=== PATIENT | female | born 1965 | race Caucasian/White ===

== ENCOUNTER → 2018-03-22 09:39 | Outpatient (CLI) | payer OTHER, SELFPAY ==
[2018-03-22 12:16] LABS: Absolute Lymphocyte Count 2.28 X10^3/ul (0.83-4.51); Basophil# 0.03 X10^3/uL; Basophil% 0.4 % (0-1); Eosinophil# 0.35 X10^3/uL; Eosinophils% 4.3 % (0-5); Hematocrit 37.6 % (37-47); Hemoglobin 11.8 g/dl (12.0-15.0); Lymphocyte # 2.28 X10^3/ul (4.0); Lymphocyte % 27.9 % (19-41); Mean Corp Hgb Conc 31.4 g/gl (32-36); Mean Corpuscular Hgb 24.8 pg (27.0-32.0); Mean Platelet Vol. 9.9 fl (6.2-12.0); Monocyte# 0.45 X10^3/uL; Monocyte% 5.5 % (0-10); Neutrophil # 5.03 X10^3/uL (2.7-7.7); Neutrophil % 61.7 % (47-70); Platelet Count 375 K/mm3 (150-450); RBC Distribution Width CV 14.2 % (11.6-14.6); RBC Distribution Width SD 40.5 fl (35.1-43.9); Red Blood Count 4.76 M/mm3 (4.2-5.4); White Blood Count 8.2 K/mm3 (4.4-11.0)
[2018-03-22 12:20] LABS: POSITIVE COUNT NO; POSITIVE DIFFERENTIAL NO; POSITIVE MORPHOLOGY NO
[2018-03-22 12:42] LABS: Vitamin B12 > 2000 pg/mL (211-911); Vitamin D,25 Hydroxy 12.2 ng/mL (29.95-100.01)
[2018-03-22 12:58] LABS: ALB/GLOB Ratio 0.8 RATIO (0.9-2.4); AST(SGOT) 42 U/L (15-37); Alanine Aminotransfer ALT/SGPT 54 U/L (13-56); Albumin, Serum 3.3 g/dL (3.2-5.0); Alkaline Phosphatase 150 U/L (45-117); Anion Gap 11 (5-15); BUN 9 mg/dL (7-18); BUN/Creat Ratio 17.1 RATIO (10-20); Calcium,Total 8.9 mg/dL (8.5-10.1); Chloride 107 mmol/L (98-107); Cholesterol 111 mg/dL (200); Creatinine, Serum 0.52 mg/dL (0.55-1.02); EST Glomerular Filtration Rate 131 mL/min (>60); Est Glom Filt Rate - Afr Amer 158 mL/min (>60); Ferritin 27 ng/mL (8-252); Globulin 3.9 g/dL (2.2-4.2); Glucose 114 mg/dL (74-106); High Density Lipoprotein 35 mg/dL; Iron 56 ug/dL (50-170); Potassium 3.7 mmol/L (3.5-5.1); Protein, Total 7.2 g/dL (6.4-8.2); Sodium Level 144 mmol/L (136-145); Thyroid Stim Hormone (TSH) < 0.01 uIU/mL (0.358-3.74); Triglycerides 53 mg/dL; Very Low Density Lipoprotein 11 mg/dL (5-40)
[2018-03-22 13:48] LABS: Free T3 6.6 pg/mL (2.18-3.98); T4 Free Direct 1.93 ng/dL (0.76-1.46)
== END ==
PROVIDERS: Family Provider Family Medicine; PCP Family Medicine; Visit Provider Family Medicine
DX: D50.9 Iron deficiency anemia, unspecified (principal); E53.8 Deficiency of other specified B group vitamins; R53.83 Other fatigue; E05.90 Thyrotoxicosis, unspecified without thyrotoxic crisis or storm
CPT/HCPCS: 36415; 80053; 80061; 82306; 82607; 82728; 83540; 84439; 84443; 84445; 84481; 85025

== ENCOUNTER → 2018-03-26 15:23 | Outpatient (CLI) | payer OTHER, SELFPAY ==
--- NOTE | 2018-03-26 15:37 | US_ITS ---
STUDY: THYROID ULTRASOUND REASON FOR EXAM: Female, 52 years old. POSSIBLE HYPERTHYROIDISM, GRAVES DX TECHNIQUE: Ultrasound evaluation of the thyroid was performed with real-time and static thompson-scale imaging. COMPARISON: None. FINDINGS: RIGHT LOBE: The right lobe of the thyroid gland measures 4.5X1.8X1.2 cm. There is a heterogeneous echotexture. There are no demonstrated solid, cystic or complex lesions. LEFT LOBE: The left lobe of the thyroid gland measures 4X1.6X1.2 cm. There is a heterogeneous echotexture. There are no demonstrated solid, cystic or complex lesions. ISTHMUS: The isthmus measures 4 MM. There is a left sided lymph node that measures 19 x 17 x 5mm. US/Thyroid IMPRESSION: There is diffusely heterogeneous bilateral thyroid lobes. There is no visualized thyroid nodule. Left neck lymph node. Electronically Signed: Musa Thrasher MD at 20:08 EDT , Service support ,
== END ==
PROVIDERS: Family Provider Family Medicine; PCP Family Medicine; Visit Provider Family Medicine
DX: E05.00 Thyrotoxicosis with diffuse goiter without thyrotoxic crisis or storm (principal)
CPT/HCPCS: 76536

== ENCOUNTER → 2018-05-10 14:57 | Outpatient (CLI) | payer OTHER, SELFPAY ==
[2018-05-10 17:36] LABS: Absolute Lymphocyte Count 2.01 X10^3/ul (0.83-4.51); Absolute Neutrophil Count 6.1 X10^3/uL (2.0-7.7); Basophil# 0.04 X10^3/uL; Basophil% 0.4 % (0-1); Eosinophil# 0.36 X10^3/uL; Hematocrit 38.8 % (37-47); Hemoglobin 12.1 g/dl (12.0-15.0); Lymphocyte # 2.01 X10^3/ul (4.0); Lymphocyte % 22.6 % (19-41); Mean Corp Hgb Conc 31.2 g/gl (32-36); Mean Corpuscular Hgb 25.2 pg (27.0-32.0); Mean Corpuscular Volume 80.8 fL (81-99); Mean Platelet Vol. 10.1 fl (6.2-12.0); Monocyte# 0.32 X10^3/uL; Monocyte% 3.6 % (0-10); Neutrophil # 6.07 X10^3/uL (2.7-7.7); Neutrophil % 68.4 % (47-70); Platelet Count 384 K/mm3 (150-450); RBC Distribution Width CV 15.8 % (11.6-14.6); RBC Distribution Width SD 46.2 fl (35.1-43.9); White Blood Count 8.9 K/mm3 (4.4-11.0)
[2018-05-10 17:37] LABS: Differential Indicated SCAN CRITERIA MET; POSITIVE COUNT NO; POSITIVE DIFFERENTIAL NO; POSITIVE MORPHOLOGY YES
[2018-05-10 17:45] LABS: T4 Free Direct 0.49 ng/dL (0.76-1.46); Thyroid Stim Hormone (TSH) 0.24 uIU/mL (0.358-3.74)
== END ==
PROVIDERS: Family Provider Family Medicine; PCP Family Medicine; Visit Provider Family Medicine
DX: E05.00 Thyrotoxicosis with diffuse goiter without thyrotoxic crisis or storm (principal); D50.9 Iron deficiency anemia, unspecified
CPT/HCPCS: 36415; 84439; 84443; 85025

== ENCOUNTER → 2018-11-08 14:13 | Outpatient (CLI) | payer OTHER, SELFPAY ==
[2018-11-08 16:12] LABS: Absolute Lymphocyte Count 1.26 X10^3/ul (0.83-4.51); Absolute Neutrophil Count 5.8 X10^3/uL (2.0-7.7); Basophil# 0.03 X10^3/uL; Basophil% 0.4 % (0-1); Eosinophil# 0.16 X10^3/uL; Eosinophils% 2.1 % (0-5); Hematocrit 39.7 % (37-47); Hemoglobin 12.1 g/dl (12.0-15.0); Lymphocyte # 1.26 X10^3/ul (4.0); Lymphocyte % 16.4 % (19-41); Mean Corp Hgb Conc 30.5 g/gl (32-36); Mean Corpuscular Hgb 25.5 pg (27.0-32.0); Mean Corpuscular Volume 83.6 fL (81-99); Mean Platelet Vol. 10.2 fl (6.2-12.0); Monocyte# 0.44 X10^3/uL; Monocyte% 5.7 % (0-10); Neutrophil # 5.76 X10^3/uL (2.7-7.7); POSITIVE COUNT NO; POSITIVE DIFFERENTIAL NO; POSITIVE MORPHOLOGY NO; Platelet Count 394 K/mm3 (150-450); RBC Distribution Width CV 15.1 % (11.6-14.6); RBC Distribution Width SD 46.2 fl (35.1-43.9); Red Blood Count 4.75 M/mm3 (4.2-5.4); White Blood Count 7.7 K/mm3 (4.4-11.0)
[2018-11-08 16:25] LABS: T4 Free Direct 0.93 ng/dL (0.76-1.46); Thyroid Stim Hormone (TSH) 6.66 uIU/mL (0.358-3.74)
== END ==
PROVIDERS: Family Provider Family Medicine; PCP Family Medicine; Visit Provider Family Medicine
DX: E05.00 Thyrotoxicosis with diffuse goiter without thyrotoxic crisis or storm (principal); J45.909 Unspecified asthma, uncomplicated; G47.00 Insomnia, unspecified; Z51.81 Encounter for therapeutic drug level monitoring
CPT/HCPCS: 36415; 84439; 84443; 85025

== ENCOUNTER → 2019-06-10 15:37 | Outpatient (CLI) | payer OTHER, SELFPAY ==
[2019-06-10 17:58] LABS: T4 Free Direct 0.86 ng/dL (0.76-1.46); Thyroid Stim Hormone (TSH) 1.36 uIU/mL (0.358-3.74)
== END ==
PROVIDERS: Family Provider Family Medicine; PCP Family Medicine; Visit Provider Family Medicine
DX: E05.00 Thyrotoxicosis with diffuse goiter without thyrotoxic crisis or storm (principal); G47.00 Insomnia, unspecified; Z51.81 Encounter for therapeutic drug level monitoring
CPT/HCPCS: 36415; 84439; 84443

== ENCOUNTER → 2020-06-25 15:54 | Outpatient (CLI) | payer OTHER, SELFPAY ==
[2017-10-11 15:00] VITALS: BMI 24.7
[2020-06-25 17:42] LABS: Absolute Lymphocyte Count 1.63 X10^3/uL (0.83-4.51); Absolute Neutrophil Count 6.6 X10^3/uL (2.0-7.7); Basophil# 0.07 X10^3/uL; Basophil% 0.8 % (0-1); Eosinophil# 0.33 X10^3/uL; Eosinophils% 3.6 % (0-5); Hematocrit 34.2 % (37-47); Hemoglobin 10.1 g/dL (12.0-15.0); Lymphocyte # 1.63 X10^3/ul (4.0); Lymphocyte % 17.5 % (19-41); Mean Corp Hgb Conc 29.5 g/dL (32-36); Mean Corpuscular Hgb 23.3 pg (27.0-32.0); Mean Corpuscular Volume 78.8 fL (81-99); Monocyte# 0.62 X10^3/uL; Monocyte% 6.7 % (0-10); NRBC Flagged by Analyzer 0 % (0-5); Neutrophil # 6.55 X10^3/uL (2.7-7.7); Neutrophil % 70.4 % (47-70); Platelet Count 446 K/mm3 (150-450); RBC Distribution Width CV 15.9 % (11.6-14.6); RBC Distribution Width SD 45.1 fl (35.1-43.9); Red Blood Count 4.34 M/mm3 (4.2-5.4); White Blood Count 9.3 K/mm3 (4.4-11.0)
[2020-06-25 17:56] LABS: Vitamin B12 271 pg/mL (211-911); Vitamin D,25 Hydroxy 15.7 ng/mL
== END ==
PROVIDERS: PCP Family Medicine; Visit Provider Family Medicine
DX: E05.00 Thyrotoxicosis with diffuse goiter without thyrotoxic crisis or storm (principal); D50.9 Iron deficiency anemia, unspecified; E53.8 Deficiency of other specified B group vitamins; E55.9 Vitamin D deficiency, unspecified
CPT/HCPCS: 36415; 82306; 82607; 84439; 84443; 85025

== ENCOUNTER 2023-06-30 00:02 | Inpatient (IN) | payer OTHER, SELFPAY ==
[2023-06-30] VITALS (32 sets, daily range): BP systolic 81–115; BP diastolic 52–81; PULSE 76–94; RESP 14–23; TEMP 35.7–36.9; O2SAT 93–100; BMI 27.1; BMI 26.6; BMI 26.4
--- NOTE | 2023-06-30 00:12 | EKG12_ITS ---
Test Reason : CP Blood Pressure : / mmHG Vent. Rate : 092 BPM Atrial Rate : 092 BPM P-R Int : 128 ms QRS Dur : 108 ms QT Int : 382 ms P-R-T Axes : 038 008 059 degrees QTc Int : 472 ms Normal sinus rhythm ST & T wave abnormality, consider anterior ischemia Prolonged QT Abnormal ECG Confirmed by KAILEE GOYAL, BRYSON ([id number]), field map editor ALLYN BECKER ([id number]) on 07/03/2023 12:16:24 PM Referred By: Timo Worthington Confirmed By:BRYSON DUGAN MD
--- NOTE | 2023-06-30 00:21 | ED.VIS.CHEST ---
HPI History of Present Illness Chief Complaint: Chest Pain Detail of Chief Complaint: Chest pain since Sunday night. Informant: patient Onset/Context/Timing Onset: Today, Yesterday and Days Activity at onset: gradual Timing: Intermittent Quality: Positive for Heaviness and Indigestion Location: Substernal Current Severity: 6/10 Maximum Severity: 9/10 Worsened By: Exertion Relieved By: NTG Associated Symptoms: Positive for Nausea, Diaphoresis, Dyspnea and Acid Reflux Narrative Narrative: 58-year-old female history of thyroid disease. No prior cardiac history. Does have a brother that has cardiac disease. She is a non-smoker. On Sunday while playing with her grandchildren she had some upper chest discomfort. Its been intermittent since then. Tonight about 1 to 2 hours ago she had onset of midsternal chest pain radiating to her neck, jaw and left arm. Associated with nausea, diaphoresis and shortness of breath. No history of DVT or PE or risk factors. No leg pain or swelling. She is not diabetic. Prior Similar Symptoms: No Recent Illness/Hospitalization: No CVD Risk Factors: Negative for Hypertension or Diabetes PE Risk Factors: Negative for Recent Travel/Surgery, Recent Immobilization, Prior DVT or PE, Cancer or OCP + Smoking + >/=35 TAD Risk Factors: Negative for Marfan's Syndrome [facility] Medical History Asthma Chronic anemia Graves disease Iron deficiency anemia Overweight Vitamin B12 deficiency Home Medications albuterol sulfate 90 mcg/actuation aerosol inhaler (Ventolin HFA) 1 - 2 puff inhalation Q4H PRN PRN Sob &/Or Wheezing 10/04/17 [History Last Taken Unknown] cyanocobalamin (vitamin B-12) 1,000 mcg capsule 1,000 mcg PO DAILY 10/04/17 [History Last Taken Unknown] melatonin ER 10 mg-pyridoxine HCl (B6) 10 mg tab, immed-extend release 1 ea PO QHS PRN Sleep 10/04/17 [History Last Taken Unknown] multivitamin (Multiple Vitamins tablet) 1 ea PO DAILY 10/04/17 [History Last Taken Unknown] ibuprofen 600 mg tablet 600 mg PO Q6H PRN Pain #60 tabs 10/11/17 [Rx Last Taken Unknown] methimazole 5 mg tablet 5 mg PO BID 06/30/23 [History Last Taken Unknown] Allergy/AdvReac Type Severity Reaction Status Date / Time acetaminophen [From Vicodin] AdvReac Nausea Verified 06/30/23 00:03 codeine AdvReac Nausea Verified 06/30/23 00:03 hydrocodone [From Vicodin] AdvReac Nausea Verified 06/30/23 00:03 morphine AdvReac Nausea Verified 06/30/23 00:03 Family History (Updated 06/30/23 @ 01:[address] Leia Melissa MD) Grandfather CAD (coronary artery disease) Maternal GF. Hypertension Heart disease Myocardial infarction Grandfather CAD (coronary artery disease) Paternal GF Hypertension Heart disease Myocardial infarction Uncle CAD (coronary artery disease) Maternal uncle. Hypertension Heart disease Myocardial infarction Uncle CAD (coronary artery disease) Paternal Uncle. Hypertension Heart disease Myocardial infarction Brother Myocardial infarction Hypertension Heart disease CAD (coronary artery disease) Father Diabetes Mother Hypertension Surgical History H/O unilateral oophorectomy History of dental surgery History of hysterectomy S/P appendectomy S/P tonsillectomy and adenoidectomy Social History (Updated 06/30/23 @ 01:[address] Leia Melissa MD) household members: spouse Smoking Status: Former smoker how long ago did patient quit smoking: Smoked couple cig/week x ~ 6 months in 1983, none since. alcohol intake: current alcohol intake frequency: 0-2 drinks per day details: Drinks 2, sometimes max 3 glasses wine 3/week. substance use type: does not use ROS ROS ED ROS Narrative No recent illness. Intermittent chest pain last several days. Review of Systems ROS Unobtainable: Denies due to encephalopathy Constitutional Constitutional ED: Denies chills or fever(s) Eyes Eyes: Reports none ENT ENT ED: Denies ear pain Cardiovascular Cardiovascular: Reports chest pain Respiratory/Chest Respiratory/Chest: Reports dyspnea Gastrointestinal Gastrointestinal: Reports nausea; Denies abdominal pain Genitourinary Genitourinary ED: Denies dysuria or hematuria Musculoskeletal Musculoskeletal: Denies arthralgias Integumentary Denies abscess or Abrasions Neurologic Neurologic: Denies headache(s) Psychiatric Psychiatric: Denies anxiety Endocrine Endocrinology: Denies cold intolerance Hematologic/Lymphatic Hematologic/Lymphatic: Denies easy bleeding or easy bruising Allergic/Immunologic Allergic/Immunologic ED: Denies mouth swelling or tongue swelling EXAM Physical Exam Narrative Exam Narrative: 58-year-old female vital signs stable afebrile. Awake and alert. Sitting upright in bed. Pulse ox 97% on room air. H EENT exam unremarkable. Neck nontender. Lungs clear to auscultation. Heart regular rhythm no murmur rate about 90. Chest wall nontender. Abdomen soft nontender. Moving all 4 extremities. Calves are nontender without edema or cords. Neurologically she is awake and alert. Const Vital Signs: 06/30/23 00:06 06/30/23 00:09 06/30/23 00:15 Temperature 96.3 F L Temperature Source Temporal Pulse Rate 91 Respiratory Rate 18 Respiratory Effort Normal Non-Labored Blood Pressure 110/72 Blood Pressure Mean 84 Pulse Ox 97 Oxygen Delivery Method Room Air Room Air 06/30/23 00:35 06/30/23 00:47 Temperature Temperature Source Pulse Rate 78 Respiratory Rate 16 Respiratory Effort Blood Pressure 111/58 L 100/73 Blood Pressure Mean Pulse Ox Oxygen Delivery Method Positive well nourished and well developed; Negative for cachectic, contractures or unkempt General Appearance ED: well developed and NAD; Negative for unkempt, cachectic, contractures or pallor Nutritional Appearance: Negative for cachectic HEENT Reports moist mucous membranes normocephalic and atraumatic; Negative for trauma or tenderness Eyes PERRL and EOMs intact bilaterally General Eye ED: Negative for pale conjunctiva, scleral icterus or other Neck no lymphadenopathy, supple and no JVD General: Negative for tenderness Chest Wall inspection of chest normal and palpation of chest normal Resp normal respiratory effort and clear to auscultation bilaterally Effort and Inspection: Negative for respiratory distress Auscultation: Negative for rales, rhonchi or wheezes Cardio regular rate, regular rhythm, S1 normal heart sound, S2 normal heart sound and no murmurs Rate: Negative for bradycardia or tachycardic Peripheral Pulses: pulses 2+ throughout GI normal to inspection, nondistended, normoactive bowel sounds, soft to palpation, non-tender, non-distended and no masses Auscultation: Negative for hyperactive bowel sounds Palpation: Negative for splenomegaly or mass Back/Spine no CVA tenderness and no thoracic nor lumbar tenderness General Back: Negative for CVA tenderness Cervical Spine: Negative for cervical spine tenderness Extremity normal to inspection General Extremety ED: Negative for edema, pulses abnormal or tenderness General Extremity: Negative for edema or pulses abnormal Neuro oriented x3 and CN's II-XII intact bilaterally Sensorium / Orientation: awake, alert, oriented to person, oriented to place and oriented to time; Negative for confused, lethargic or stuporous Motor Exam: strength 5/5 throughout Psych mental status grossly normal Appearance: Negative for unkempt Attitude: No agitated Mood & Affect: Negative for depressed, anxious or tearful Skin no rashes or lesions noted and no wounds General Skin Exam: Negative for jaundice or pallor Rashes: No rashes noted Trauma: Negative for abrasion or laceration Heart Score History: Highly Suspicious ECG: Significant ST-Depression Age: >45 - <65 years Risk Factors: 1 or 2 Risk Factors Troponin: </= Normal Limit Score: 6 MDM MDM MDM Narrative Medical decision making narrative: 58-year-old female with a very concerning story for chest pain and sounds cardiac and has an EKG with significant anterolateral changes, very concerning for posterior CT. I have spoken with cardiology on-call Dr. Worthington. Will undergo cardiac work-up. She was already given aspirin by squad. She will be started on nitro drip. Heparin bolus and drip. Repeat an EKG. If she is not improving or worsening she may have to go directly to the [facility]. Repeat exam at 12:45 AM pain is actually getting worse. Her repeat EKG again shows diffuse ST depression T wave inversion V1 through V6. Consistent with a posterior CT. No significant change from the first I again discussed the patient's case with cardiology on-call Dr. Worthington. STEMI team has been called and he is coming in to take the patient to [facility]. Patient is aware. Currently she does not want anything for pain. History & Record Review Discussion w/independent historian: Patient Additional record(s) reviewed:: Prior inpatient record, Prior outpatient record, Prior ED visit and Prior labs Lab Data Attestation: I reviewed the patient's lab results. Lab results narrative: Patient is a white count 12.8. H&H 9.0 and 31. Platelets 47. Chemistries show a gap of 8. BUN and creatinine 23 and 1.37. Glucose 267. Her initial troponin is only 26. Labs: Laboratory Results - last 24 hr 06/30/23 06/30/23 00:20 00:30 WBC 12.8 H RBC 4.03 L Hgb 9.0 L Hct 31.1 L MCV 77.2 L MCH 22.3 L MCHC 28.9 L RDW Std Deviation 45.4 H RDW Coeff of Rylee 16.5 H Plt Count 487 H MPV 10.0 Immature Gran % (Auto) 1.600 H Neut % (Auto) 73.6 H Lymph % (Auto) 17.3 L [place] % (Auto) 4.6 Eos % (Auto) 2.0 Baso % (Auto) 0.9 Absolute Neuts (auto) 9.5 H Absolute Lymphs (auto) 2.22 Nucleated RBC % 0 PT 13.3 INR 1.0 APTT 24.8 Sodium 141 Potassium 3.5 Chloride 111 H Carbon Dioxide 22.0 Anion Gap 8 BUN 23 H Creatinine 1.37 H Estim Creat Clear Calc 42.92 Est GFR (MDRD) Af Amer 51 L Est GFR (MDRD) Non-Af 42 L BUN/Creatinine Ratio 16.8 Glucose 267 H Calcium 8.4 L Magnesium 2.2 Troponin I High Sens 26 B-Natriuretic Peptide 25.7 Radiography Chest X-Ray - ED: 1 View, Read by ED Physician, Heart, Lungs, Mediastinum, Bony Structures and No Acute Disease Diagnostic Testing: Clinical Impression(s) from Imaging Studies Chest X-Ray 06/30/23 00:45 IMPRESSION: No radiographic evidence of acute cardiopulmonary disease. Electronically Signed: Sd Quezada MD at 1:38 EDT Reading Location ID and State: [address] [place] [address] Tel , Service support , Chest x-ray, portable, single view, interpreted by myself shows no acute abnormality. Normal cardiac silhouette. Normal mediastinum. Normal aortic knob. Normal lung tyler. Rhythm Strip Rhythm Strip: Sinus Rhythm Rate: 92 Ectopy: None EKG Initial EKG: Attestation: I personally reviewed and interpreted this EKG as follows: Interpretation: Sinus Rhythm and S-T Depression Comments: Normal sinus rhythm rate of 92. ST depression with T wave inversion in V1, V2, V3 and V4. Concerning for posterior CT. Prior EKG tracings: not available for review Prior: No Prior Follow-up EKG: Attestation: I personally reviewed and interpreted this EKG as follows: Interpretation: Sinus Rhythm and S-T Depression Comments: Repeat EKG again shows a normal sinus rhythm. With diffuse ST elevation T wave inversions in leads V1 through V6. No significant change nor any improvement from the first. Critical Care Time Critical Care Time: Yes Critical care time (excluding procedures): 30-74 minutes, Including time spent:, Discussing w/Patient &/or Family/Publishing Specialist, Discussing w/Consultants, Arranging Admission or Transfer, Performing Direct Patient Care at Bedside and - (45 min) Discharge Plan Dx/Rx/DC Orders Clinical Impression: Acute CT, true posterior wall, Chest pain Disposition Disposition: Acute Care Hospital [facility] Discharge Date/Time: 06/30/23 01:40
[2023-06-30 00:30] LABS: Absolute Lymphocyte Count 2.22 X10^3/uL (0.83-4.51); Absolute Neutrophil Count 9.5 X10^3/uL (2.0-7.7); Basophil# 0.11 X10^3/uL; Basophil% 0.9 % (0-1); Eosinophil# 0.26 X10^3/uL; Hematocrit 31.1 % (37-47); Lymphocyte # 2.22 X10^3/ul (0.83-4.51); Lymphocyte % 17.3 % (19-41); Mean Corp Hgb Conc 28.9 g/dL (32-36); Mean Corpuscular Hgb 22.3 pg (27.0-32.0); Mean Corpuscular Volume 77.2 fL (81-99); Monocyte# 0.59 X10^3/uL; Monocyte% 4.6 % (0-10); NRBC Flagged by Analyzer 0 % (0-5); Neutrophil # 9.45 X10^3/uL (2.7-7.7); Neutrophil % 73.6 % (47-70); Platelet Count 487 K/mm3 (150-450); RBC Distribution Width CV 16.5 % (11.6-14.6); RBC Distribution Width SD 45.4 fl (35.1-43.9); Red Blood Count 4.03 M/mm3 (4.2-5.4); White Blood Count 12.8 K/mm3 (4.4-11.0)
[2023-06-30] MEDS: Nitroglycerin Infusion 250 ML 3 MG CONT INF (00:35)
--- NOTE | 2023-06-30 00:35 | EKG12_ITS ---
Test Reason : REPEAT CP Blood Pressure : / mmHG Vent. Rate : 085 BPM Atrial Rate : 085 BPM P-R Int : 128 ms QRS Dur : 110 ms QT Int : 378 ms P-R-T Axes : 020 027 074 degrees QTc Int : 449 ms Normal sinus rhythm ST & T wave abnormality, consider anterior ischemia Abnormal ECG Confirmed by KAILEE GOYAL, BRYSON ([id number]), digital editor ALLYN BECKER ([id number]) on 07/03/2023 12:16:40 PM Referred By: Timo Worthington Confirmed By:BRYSON DUGAN MD
[2023-06-30] MEDS: Ondansetron 4 MG/2 ML Vial IV ×2 (00:43→17:48)
--- NOTE | 2023-06-30 00:45 | RAD_ITS ---
EXAM: XR CHEST, 1 VIEW CLINICAL INDICATION: chest pain TECHNIQUE: Frontal view of the chest. COMPARISON: No relevant prior studies available. FINDINGS: LUNGS AND PLEURAL SPACES: Unremarkable. No consolidation or edema. No pneumothorax. No effusion. HEART: Unremarkable. Cardiac silhouette not enlarged. MEDIASTINUM: Central airways and mediastinal contour are unremarkable. BONES/JOINTS: Unremarkable. SOFT TISSUES: Unremarkable. RAD/Chest 1 View (Portable) IMPRESSION: No radiographic evidence of acute cardiopulmonary disease. Electronically Signed: Sd Quezada MD at 1:38 EDT ,
[2023-06-30 00:46] LABS: Anion Gap 8 (5-15); BUN 23 mg/dL (7-18); BUN/Creat Ratio 16.8 RATIO (10-20); Calcium,Total 8.4 mg/dL (8.5-10.1); Chloride 111 mmol/L (98-107); Creatinine, Serum 1.37 mg/dL (0.55-1.02); EST Glomerular Filtration Rate 42 mL/min (>60); Est Glom Filt Rate - Afr Amer 51 mL/min (>60); Estimated Creatinine Clearance 42.92 ml/min; Glucose 267 mg/dL (74-106); Potassium 3.5 mmol/L (3.5-5.1); Sodium Level 141 mmol/L (136-145); Troponin-I HS (w/2H Reflex) 26 pg/mL (3.0-54.0)
--- NOTE | 2023-06-30 00:49 | PCM.HP.STD ---
HPI - General General Date of Admission: 06/30/23 Date of Service: 06/30/23 Chief Complaint: Chest pain, LH, vision changes, dyspnea, diaphoresis, nausea. HPI Narrative The patient is a 58 y/o F w/ PMHx: Former remote short duration light tobacco use, Hyperthyroidism w/ Graves disease, Chronic microcytic anemia/iron deficiency anemia/vitamin B12 deficiency, Asthma who presents to the [facility] ED on 06/30/23 with history of 3 days of intermittent chest discomfort starting Sunday night after she was very active with her grandchild reporting midsternal chest discomfort described as a tightness and also a burning sensation with radiation to the left upper extremity as well as the jaw with associated nausea, diaphoresis and dyspnea reporting discomfort at its worst 10 out of 10 in severity and upon current presentation 6-7 out of 10 in severity with ongoing events intermittently over the last several days eventually 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 Work-up in the ED included T96.3, heart rate 91, BP 110/72, respiratory rate 18, 97% on room air, CBC with WBC 12.8, hemoglobin 9, MCV 77.2, platelet 47 with increased immature granulocyte left shift, BMP with chloride 111, BUN/creatinine 23/1.37, glucose 267, calcium 8.4, troponin 26, unremarkable coags. CXR pending upon evaluation. EKG w/ EKG with anterior lateral changes concerning for posterior IA with initial ED discussions with cardiology on-call Dr. Worthington with at that time requested nitroglycerin start, heparin bolus and drip with repeat EKG obtained demonstrating diffuse ST depression and T wave inversions V1 through V6 consistent with posterior IA with then again discussion with cardiology and request for STEMI call. In the ED patient initiated on nitroglycerin drip, heparin drip with bolus as well as full-strength aspirin. Patient transition from the ED to the cardiac catheterization lab prior to transition to ICU plan to transition. [facility], [facility] Medical History (Updated 06/30/23 @ 01:[address] Leia Melissa MD) Asthma Chronic anemia Graves disease Iron deficiency anemia Overweight Vitamin B12 deficiency Home Medications albuterol sulfate 90 mcg/actuation aerosol inhaler (Ventolin HFA) 1 - 2 puff inhalation Q4H PRN PRN Sob &/Or Wheezing 10/04/17 [History Last Taken Unknown] cyanocobalamin (vitamin B-12) 1,000 mcg capsule 1,000 mcg PO DAILY 10/04/17 [History Last Taken Unknown] melatonin ER 10 mg-pyridoxine HCl (B6) 10 mg tab, immed-extend release 1 ea PO QHS PRN Sleep 10/04/17 [History Last Taken Unknown] multivitamin (Multiple Vitamins tablet) 1 ea PO DAILY 10/04/17 [History Last Taken Unknown] ibuprofen 600 mg tablet 600 mg PO Q6H PRN Pain #60 tabs 10/11/17 [Rx Last Taken Unknown] methimazole 5 mg tablet 5 mg PO BID 06/30/23 [History Last Taken Unknown] Allergy/AdvReac Type Severity Reaction Status Date / Time acetaminophen [From Vicodin] AdvReac Nausea Verified 06/30/23 00:03 codeine AdvReac Nausea Verified 06/30/23 00:03 hydrocodone [From Vicodin] AdvReac Nausea Verified 06/30/23 00:03 morphine AdvReac Nausea Verified 06/30/23 00:03 Family History (Updated 06/30/23 @ 01:[address] Leia Melissa MD) Grandfather CAD (coronary artery disease) Maternal GF. Hypertension Heart disease Myocardial infarction Grandfather CAD (coronary artery disease) Paternal GF Hypertension Heart disease Myocardial infarction Uncle CAD (coronary artery disease) Maternal uncle. Hypertension Heart disease Myocardial infarction Uncle CAD (coronary artery disease) Paternal Uncle. Hypertension Heart disease Myocardial infarction Brother Myocardial infarction Hypertension Heart disease CAD (coronary artery disease) Father Diabetes Mother Hypertension Surgical History (Updated 06/30/23 @ 01:[address] Leia Melissa MD) H/O unilateral oophorectomy History of dental surgery History of hysterectomy S/P appendectomy S/P tonsillectomy and adenoidectomy Social History (Updated 06/30/23 @ 01:[address] Leia Melissa MD) household members: spouse Smoking Status: Former smoker how long ago did patient quit smoking: Smoked couple cig/week x ~ 6 months in 1983, none since. alcohol intake: current alcohol intake frequency: 0-2 drinks per day details: Drinks 2, sometimes max 3 glasses wine 3/week. substance use type: does not use ROS ROS Narrative Admission Review of Systems: CONSTITUTIONAL: No weight loss, fever, chills, + weakness or fatigue. HEENT: + Blurry vision, LH, dizziness. Eyes: No visual loss, double vision or yellow sclerae. Ears, Nose, Throat: No hearing loss, sneezing, congestion, runny nose or sore throat. SKIN: No rash or itching, lesions, wounds. CARDIOVASCULAR: + chest pain, chest pressure or chest discomfort, LH, dizziness. No palpitations, edema, orthopnea, syncopal events. RESPIRATORY: + shortness of breath. No cough or sputum, wheezing, hemoptysis. GASTROINTESTINAL: + anorexia, nausea. No vomiting or diarrhea, abdominal pain, melena, BRBPR. GENITOURINARY: No dysuria, frequency, urgency or retention. NEUROLOGICAL: + LH, dizziness. No headache, paralysis, ataxia, numbness or tingling in the extremities, focal weakness, change in bowel or bladder control, seizure. MUSCULOSKELETAL: + muscle, back pain, joint pain or stiffness. HEMATOLOGIC: + anemia. No bleeding or bruising. LYMPHATICS: No enlarged nodes. No history of splenectomy. PSYCHIATRIC: No history of depression or anxiety. ENDOCRINOLOGIC: + reports of sweating. No cold or heat intolerance. No polyuria or polydipsia. ALLERGIES: + history of asthma. Vital Signs Vital Signs Vital Signs: 06/30/23 00:06 06/30/23 00:09 06/30/23 00:15 Temperature 96.3 F L Temperature Source Temporal Pulse Rate 91 Respiratory Rate 18 Respiratory Effort Normal Non-Labored Blood Pressure 110/72 Blood Pressure Mean 84 Pulse Ox 97 Oxygen Delivery Method Room Air Room Air 06/30/23 00:35 Temperature Temperature Source Pulse Rate 78 Respiratory Rate Respiratory Effort Blood Pressure 111/58 L Blood Pressure Mean Pulse Ox Oxygen Delivery Method Weight Weight: 168 lb 3.403 oz Body Mass Index (BMI) 27.1 Physical Exam Narrative Physical Examination: General: Awake, alert, oriented x 3 and cooperative, seated upright in the ED bed, fatigued and uncomfortable appearing, rating discomfort in the chest 6-7 out of 10 in severity, diaphoretic. Skin: Normal color, normal turgor, no icterus, no cyanosis. HEENT: AT/NC, EOMI, PERRLA, moderately dry MM, no carotid bruits or JVD noted. Lungs: Diminished, greater bases, proper effort, no rales, ronchi or wheezing. Heart: Regular rate and rhythm; no gallop, rub audible. Abdomen: Soft, overweight, NTTP, ND, mildly hyperactive BS, no HSM. Extremities: No cyanosis, no clubbing, mild bilateral ankle not markedly pitting edema. Neurological: Patient awake, alert, oriented as noted, cognitive function intact; pupils equally reactive to light and accommodation, cranial nerves grossly normal, moving all 4 extremities, no focal deficits, strength severely globally decreased secondary to acute presentation. Psychiatric: Affect appears uncomfortable, ill-appearing, no acute evidence of depressive or anxiety feelings. Results Lab / Micro Data 06/30/23 00:20 06/30/23 00:20 Labs: Laboratory Results - last 24 hr 06/30/23 00:20: WBC 12.8 H, RBC 4.03 L, Hgb 9.0 L, Hct 31.1 L, MCV 77.2 L, MCH 22.3 L, MCHC 28.9 L, RDW Std Deviation 45.4 H, RDW Coeff of Rylee 16.5 H, Plt Count 487 H, MPV 10.0, Immature Gran % (Auto) 1.600 H, Neut % (Auto) 73.6 H, Lymph % (Auto) 17.3 L, [place] % (Auto) 4.6, Eos % (Auto) 2.0, Baso % (Auto) 0.9, Absolute Neuts (auto) 9.5 H, Absolute Lymphs (auto) 2.22, Nucleated RBC % 0, Sodium 141, Potassium 3.5, Chloride 111 H, Carbon Dioxide 22.0, Anion Gap 8, BUN 23 H, Creatinine 1.37 H, Estim Creat Clear Calc 42.92, Est GFR (MDRD) Af Amer 51 L, Est GFR (MDRD) Non-Af 42 L, BUN/Creatinine Ratio 16.8, Glucose 267 H, Calcium 8.4 L, Troponin I High Sens 26 Rhythm Strip Rhythm Strip: Sinus Rhythm Rate: 92 Ectopy: None Assessment & Plan Assessment/Plan (1) Acute IA, true posterior wall: PLAN: Plan The patient is a 58 y/o F w/ PMHx: Former remote short duration light tobacco use, Hyperthyroidism w/ Graves disease, Chronic microcytic anemia/iron deficiency anemia/vitamin B12 deficiency, Asthma who presents to the [facility] ED on 06/30/23 with history of 3 days of intermittent chest discomfort starting Sunday night after she was very active with her grandchild reporting midsternal chest discomfort ongoing and intermittent with worsening symptoms now with dizziness and lightheadedness as well as dyspepsia and vision changes prompting eventual ED evaluation. #1. Chest Pain w/ Acute Posterior STEMI: EKG in ED w/ diffuse ST depression and T wave inversions V1 through V6 consistent with posterior IA, CXR pending, Trop 26. Will admit to ICU, transition from ED to cardiac catheterization lab with cardiology, maintain on a monitored bed, continue serial cardiac enzymes and EKGs. Obtain magnesium level upon admission. We will continue heparin drip. We will continue nitroglycerin drip. Continue medical management w/ planned addition of asa, Brilinta, statin w/ AM FLP. We will hold on beta-aubrey addition given low blood pressure and will defer to cardiology. ECHO requested. #2. Hyperglycemia suspicious for diabetes mellitus type II: Admission glucose 267, will obtain hemoglobin A1c and given significant elevation will maintain on ADA diet once appropriate with Accu-Cheks with insulin sliding scale. If hemoglobin A1c is consistent with diabetes would benefit from consideration nutrition consultation and may require initiation of insulin pending blood sugar trending. #3. Chronic microcytic anemia/iron deficiency anemia/vitamin B12 deficiency: Admission CBC with hemoglobin 9.0, MCV 77.2 with patient reporting she had previously been on iron but is no longer taking, will obtain Fe panel, ferritin, vitamin B12/folic acid, given these findings would benefit from restart which will be initiated and will continue vitamin B12 supplementation, will trend CBC. #4. Possible underlying CKD stage III versus renal insufficiency versus MARSHALL, uncertain: Admission BUN/creatinine 16/10.37, GFR 42, no marked comparisons available, will judiciously hydrate and repeat CMP in AM. #5. Hypothyroidism: We will continue patient home methimazole regimen, TSH and free T4 requested. #6. Former remote, light tobacco use: Patient reports smoking a couple of cigarettes weekly for approximately 6 months in 1983 otherwise no tobacco exposure. #7. Chronic asthma: Not on any chronic regimen, PRN albuterol, HOB, IS parameters. #8. Overweight: Weight loss and lifestyle changes encouraged. #9. DVT prophylaxis: Heparin bolus and drip being initiated as noted. #10. CODE STATUS: Full code. Charges/Coding Visit Charges Inpatient E&M: 30717 Init Hosp L3
[2023-06-30] MEDS: HEPARIN/D5w 25,000 UNITS 25,000 UNITS/250 ML IV.SOLN. 9 UNITS CONT INF (00:52)
[2023-06-30 00:54] LABS: Partial Thromboplast Time 24.8 Seconds (24.1-36.2); Prothrombin Time (Protime)PT. 13.3 SECONDS (11.7-14.9)
[2023-06-30] MEDS: Heparin Injection (Vial) 5,000 UNIT/ML VIAL 4000 UNIT IV (00:55)
[2023-06-30 01:16] LABS: Magnesium 2.2 mg/dL (1.6-2.6)
[2023-06-30 01:22] LABS: BNP,B-Type NATRIURETIC PEPTIDE 25.7 pg/mL (0-100)
--- NOTE | 2023-06-30 01:36 | ED.RN ---
0047 stemi alert called.
[2023-06-30 02:25] LABS: Reflex Troponin-HS? (from REC) Y
--- NOTE | 2023-06-30 03:16 | ECHOD_ITS ---
Version 2 Reason For Study: STEMI Procedure This was a 2D Doppler, Color Flow transthoracic echocardiogram. Exam performed portable in ICU/CCU. Left Ventricle Normal LV size. Left ventricular systolic function is normal. The estimated ejection fraction is 60 %. Stage 2 diastolic dysfunction. Mid-Lateral : Severely Hypokinetic. Lateral-Basal: Severely Hypokinetic. There are regional wall motion abnormalities as specified. Right Ventricle Normal RV size. Normal systolic function. Atria Normal left atrium. Normal right atrium. Mitral Valve Moderate papillary muscle dysfunction of the mitral valve. Normal mitral valve. Moderate (2+) eccentric mitral valve insufficiency. Tricuspid Valve Normal tricuspid valve. Mild (1+) tricuspid valve insufficiency. Pulmonary artery systolic pressure is 38 mmHg. Aortic Valve Normal aortic valve. Pulmonic Valve Normal pulmonic valve. Great Vessels Normal aortic root. The pulmonary artery is normal size. Normal inferior vena cava. Pericardium/Pleural No pericardial effusion. MMode/2D Measurements & Calculations LVIDd: 4.6 cm IVSd: 0.97 cm Ao root diam: 2.9 cm LVIDs: 3.4 cm LVPWd: 1.2 cm FS: 27.0 % LAV(MOD-bp): 45.7 ml LVAd ap4: 23.9 cm2 LVAd ap2: 25.4 cm2 LAV(MOD-bp) Indexed: 24.8 ml/m2 LVLd ap4: 6.6 cm LVLd ap2: 6.9 cm LAV(MOD-sp2): 51.5 ml EDV(MOD-sp4): 73.0 ml EDV(MOD-sp2): 81.1 ml LAV(MOD-sp4): 37.9 ml EDV(sp4-el): 73.5 ml EDV(sp2-el): 79.8 ml LVAs ap4: 13.5 cm2 LVAs ap2: 14.3 cm2 LVLs ap4: 5.7 cm LVLs ap2: 5.9 cm ESV(MOD-sp4): 27.7 ml ESV(MOD-sp2): 30.1 ml ESV(sp4-el): 27.0 ml ESV(sp2-el): 29.6 ml EF(MOD-sp4): 62.1 % EF(MOD-sp2): 62.9 % EF(sp4-el): 63.2 % SV(MOD-sp4): 45.4 ml SV(MOD-sp2): 51.0 ml SV(sp4-el): 46.5 ml LA dimension(2D): 4.0 cm LA A4 area: 15.6 cm2 RA A4 area: 8.7 cm2 TAPSE: 2.0 cm Time Measurements MV dec time: 0.09 sec Doppler Measurements & Calculations MV E max andrea: 84.3 cm/sec Lat Peak E' Andrea: 6.4 cm/sec Med Peak E' Andrea: 8.6 cm/sec MV A max andrea: 61.1 cm/sec E/E' lat: 13.1 E/E' med: 9.8 MV E/A: 1.4 MV V2 max: 93.5 cm/sec MV dec slope: 1002 cm/sec2 Ao V2 max: 99.2 cm/sec MV max P.5 mmHg Ao max P.0 mmHg MV V2 mean: 68.4 cm/sec Ao V2 mean: 70.3 cm/sec MV mean P.0 mmHg Ao mean P.2 mmHg MV V2 VTI: 26.2 cm Ao V2 VTI: 20.7 cm AV (velocity ratio): 0.96 LV V1 max: 91.5 cm/sec MR max andrea: 466.8 cm/sec PA V2 max: 87.4 cm/sec LV V1 max P.4 mmHg MR max P.1 mmHg PA V2 mean: 65.6 cm/sec LV V1 mean P.9 mmHg MR mean andrea: 355.5 cm/sec LV V1 mean: 64.5 cm/sec MR mean P.5 mmHg LV V1 VTI: 19.9 cm MR VTI: 166.2 cm TR max andrea: 294.2 cm/sec TR max P.6 mmHg ECHO/Echo Complete Interpretation Summary Normal LV size. Left ventricular systolic function is normal. The estimated ejection fraction is 60 %. Stage 2 diastolic dysfunction. Pulmonary artery systolic pressure is 38 mmHg. Moderate (2+) eccentric mitral valve insufficiency. Moderate papillary muscle dysfunction of the mitral valve. There are regional wall motion abnormalities as specified. Ordering Physician: Leia Melissa Referring Physician: Timo Worthington Performed By: Ilda Oro RCS
--- NOTE | 2023-06-30 03:16 | EKG12_ITS ---
Test Reason : post cath Blood Pressure : / mmHG Vent. Rate : 080 BPM Atrial Rate : 080 BPM P-R Int : 126 ms QRS Dur : 088 ms QT Int : 412 ms P-R-T Axes : 035 085 082 degrees QTc Int : 475 ms Normal sinus rhythm Low voltage QRS Nonspecific ST and T wave abnormality Abnormal ECG Confirmed by KAILEE GOYAL, BRYSON ([id number]), news editor DAX MOODY ([id number]) on 07/12/2023 2:23:42 PM Referred By: Timo Worthington Confirmed By:BRYSON DUGAN MD
--- NOTE | 2023-06-30 03:21 | CON.PCM.CA_ITS ---
Assessment & Plan Assessment/Plan (1) Acute WA, true posterior wall: PLAN: Appears to be a late presentation. However as patient was having ongoing symptoms she underwent PCI of the circumflex and OM1 with drug-eluting stents. Patient will be admitted to the CCU. She has been started on aspirin, Brilinta, statin, beta-aubrey and KISHAN inhibitor. Check 2D echo to check LV function. HPI Consult Data Date of Consult: 06/30/23 HPI Narrative Reason for Consultation: STEMI HPI Narrative: SAM DE LUNA, is a 58 F who presents with chest pain that started greater than 48 hours prior to presentation. Patient states that the chest pain initially started on Sunday evening when she was playing with her grandchildren. After that the chest pain never completely went away but there were times when the pain was worse than at other times. Eventually on Sunday night chest pain continued to get worse and she came to the emergency room. Initial EKG in the emergency room showed subtle ST depressions in the precordial leads. Her chest pain got worse around 12:30 AM on Sunday and the case was discussed with Dr. aMrquez. There was a suspicion that this could be true posterior WA and the EKG was repeated. EKG continued to show same subtle ST changes without significant progression or improvement. However patient's chest pain was getting worse. So the plan was made to bring the patient to the [employer]. Patient underwent coronary angiography which revealed 100% occlusion of the circumflex with collaterals from the right that suggested a more subacute presentation. However since patient was continued to have chest pain she underwent PCI of the ostial circumflex and proximal OM1 with drug-eluting stents. Patient's chest pain improved but she continued to have some mild discomfort at the end of the procedure. She is being admitted to the CCU for further management of her ST elevation WA. Review of systems: All systems reviewed. Patient states that she has been having some bleeding from her hemorrhoids. All else is negative except that in HPI. [facility] Medical History (Updated 06/30/23 @ 01:[address] Leia Melissa MD) Asthma Chronic anemia Graves disease Iron deficiency anemia Overweight Vitamin B12 deficiency Home Medications albuterol sulfate 90 mcg/actuation aerosol inhaler (Ventolin HFA) 1 - 2 puff inhalation Q4H PRN PRN Sob &/Or Wheezing 10/04/17 [History Last Taken Unknown] cyanocobalamin (vitamin B-12) 1,000 mcg capsule 1,000 mcg PO DAILY 10/04/17 [History Last Taken Unknown] melatonin ER 10 mg-pyridoxine HCl (B6) 10 mg tab, immed-extend release 1 ea PO QHS PRN Sleep 10/04/17 [History Last Taken Unknown] multivitamin (Multiple Vitamins tablet) 1 ea PO DAILY 10/04/17 [History Last Taken Unknown] ibuprofen 600 mg tablet 600 mg PO Q6H PRN Pain #60 tabs 10/11/17 [Rx Last Taken Unknown] methimazole 5 mg tablet 5 mg PO BID 06/30/23 [History Last Taken Unknown] Allergy/AdvReac Type Severity Reaction Status Date / Time acetaminophen [From Vicodin] AdvReac Nausea Verified 06/30/23 00:03 codeine AdvReac Nausea Verified 06/30/23 00:03 hydrocodone [From Vicodin] AdvReac Nausea Verified 06/30/23 00:03 morphine AdvReac Nausea Verified 06/30/23 00:03 Family History (Updated 06/30/23 @ 01:[address] Leia Melissa MD) Grandfather CAD (coronary artery disease) Maternal GF. Hypertension Heart disease Myocardial infarction Grandfather CAD (coronary artery disease) Paternal GF Hypertension Heart disease Myocardial infarction Uncle CAD (coronary artery disease) Maternal uncle. Hypertension Heart disease Myocardial infarction Uncle CAD (coronary artery disease) Paternal Uncle. Hypertension Heart disease Myocardial infarction Brother Myocardial infarction Hypertension Heart disease CAD (coronary artery disease) Father Diabetes Mother Hypertension Surgical History (Updated 06/30/23 @ 01:[address] Leia Melissa MD) H/O unilateral oophorectomy History of dental surgery History of hysterectomy S/P appendectomy S/P tonsillectomy and adenoidectomy Social History (Updated 06/30/23 @ 01:[address] Leia Melissa MD) household members: spouse Smoking Status: Former smoker how long ago did patient quit smoking: Smoked couple cig/week x ~ 6 months in 1983, none since. alcohol intake: current alcohol intake frequency: 0-2 drinks per day details: Drinks 2, sometimes max 3 glasses wine 3/week. substance use type: does not use Physical Exam Const alert and oriented x3 HEENT normocephalic Eyes no scleral icterus Resp normal respiratory effort Cardio regular rate and regular rhythm Extremity no pedal edema Skin no rashes or lesions noted Psych mental status grossly normal Risk Stratification Risk Stratification Applicable: No Charges/Coding Visit Charges Inpatient E&M: 64840 Init Hosp L2 Objective Data Vital Signs: Vital Signs Temp Pulse Resp BP Pulse Ox O2 Del Method 98.1 F 90 16 100/79 97 Room Air 06/30/23 00:59 06/30/23 00:59 06/30/23 00:59 06/30/23 01:11 06/30/23 00:59 06/30/23 00:58 Oxygen Delivery Method Room Air Weight: 168 lb 3.403 oz Body Mass Index (BMI) 27.1 Intake & Output: Intake and Output for Last 24 Hours 06/28/23 06/29/23 06/30/23 23:59 23:59 23:59 Intake Total 2.25 / 2.25 Balance 2.25 / 2.25 Lab / Micro Data 06/30/23 00:20 06/30/23 00:20 Labs: Laboratory Results - last 24 hr 06/30/23 00:20: WBC 12.8 H, RBC 4.03 L, Hgb 9.0 L, Hct 31.1 L, MCV 77.2 L, MCH 22.3 L, MCHC 28.9 L, RDW Std Deviation 45.4 H, RDW Coeff of Rylee 16.5 H, Plt Count 487 H, MPV 10.0, Immature Gran % (Auto) 1.600 H, Neut % (Auto) 73.6 H, Lymph % (Auto) 17.3 L, [place] % (Auto) 4.6, Eos % (Auto) 2.0, Baso % (Auto) 0.9, Absolute Neuts (auto) 9.5 H, Absolute Lymphs (auto) 2.22, Nucleated RBC % 0, Sodium 141, Potassium 3.5, Chloride 111 H, Carbon Dioxide 22.0, Anion Gap 8, BUN 23 H, Creatinine 1.37 H, Estim Creat Clear Calc 42.92, Est GFR (MDRD) Af Amer 51 L, Est GFR (MDRD) Non-Af 42 L, BUN/Creatinine Ratio 16.8, Glucose 267 H, Calcium 8.4 L, Troponin I High Sens 26 06/30/23 00:30: PT 13.3, INR 1.0, APTT 24.8, Magnesium 2.2, B-Natriuretic Peptide 25.7 Rhythm Strip Rhythm Strip: Sinus Rhythm Rate: 92 Ectopy: None Cardiology Labs/Tests 06/30/23 00:20: WBC 12.8 H, RBC 4.03 L, Hgb 9.0 L, Hct 31.1 L, MCV 77.2 L, MCH 22.3 L, MCHC 28.9 L, Plt Count 487 H, MPV 10.0, Immature Gran % (Auto) 1.600 H, Neut % (Auto) 73.6 H, Lymph % (Auto) 17.3 L, [place] % (Auto) 4.6, Eos % (Auto) 2.0, Baso % (Auto) 0.9, Absolute Neuts (auto) 9.5 H, Nucleated RBC % 0, Sodium 141, Potassium 3.5, Chloride 111 H, Carbon Dioxide 22.0, Anion Gap 8, BUN 23 H, Creatinine 1.37 H, Est GFR (MDRD) Af Amer 51 L, Est GFR (MDRD) Non-Af 42 L, BUN/Creatinine Ratio 16.8, Glucose 267 H, Calcium 8.4 L 06/30/23 00:30: PT 13.3, INR 1.0, APTT 24.8, Magnesium 2.2, B-Natriuretic Peptide 25.7 Rhythm: EKG: ECHO: Stress Test: Cardiac Cath: PCI: CT Surgery: Holter monitor: EPS: PPM: CXR: Chest CT Scan: Radiography Diagnostic Testing: Radiology Impression Chest X-Ray 06/30/23 00:45 IMPRESSION: No radiographic evidence of acute cardiopulmonary disease. Electronically Signed: Sd Quezada MD at 1:38 EDT ,
[2023-06-30 03:44] LABS: Absolute Lymphocyte Count 1.62 X10^3/uL (0.83-4.51); Absolute Neutrophil Count 11.8 X10^3/uL (2.0-7.7); Basophil# 0.06 X10^3/uL; Basophil% 0.4 % (0-1); Eosinophil# 0.04 X10^3/uL; Eosinophils% 0.3 % (0-5); Hematocrit 29.4 % (37-47); Hemoglobin 8.6 g/dL (12.0-15.0); Lymphocyte # 1.62 X10^3/ul (0.83-4.51); Lymphocyte % 11.4 % (19-41); Mean Corp Hgb Conc 29.3 g/dL (32-36); Mean Corpuscular Hgb 22.5 pg (27.0-32.0); Mean Platelet Vol. 10.1 fl (6.2-12.0); Monocyte# 0.46 X10^3/uL; Monocyte% 3.2 % (0-10); NRBC Flagged by Analyzer 0 % (0-5); Neutrophil # 11.81 X10^3/uL (2.7-7.7); Neutrophil % 83.4 % (47-70); Platelet Count 441 K/mm3 (150-450); RBC Distribution Width CV 16.4 % (11.6-14.6); RBC Distribution Width SD 45.4 fl (35.1-43.9); Red Blood Count 3.82 M/mm3 (4.2-5.4); White Blood Count 14.2 K/mm3 (4.4-11.0)
[2023-06-30] MEDS: Famotidine 20 MG Tablet PO (03:47)
[2023-06-30] MEDS: 0.9% Normal Saline (1000mL) 1,000 ML 100 ML IV (03:47)
--- NOTE | 2023-06-30 03:57 | CL.I_ITS ---
Patient Name: SAM DE LUNA Study Date: 06/30/2023 Performing: Thi Worthington MD Ht: 66 inches 167.64 cm : 1965 Wt: 168.4 lbs 76.3 kg Age: 58 Gender: female BSA: 1.86 PROCEDURE(S) PERFORMED DC01-(78034)LHC/COR/LV IC16-(12067/C9606)AMI, MEMO OR PTCA, ARTERY/GRAFT, SINGLE VESSEL IC13-(78091/C9600)MEMO W/WO PTCA, EACH ADD'L ART, SAME MAJOR CLINICAL PROFILE AND CO-MORBIDITIES Indications: ACS > 24 hrs. With ongoing chest pain Heart Failure: None Stress/Imaging Stress/Image Study Performed: No CAD Presentations: STEMI. Symptom onset Date/Time: 06/27/23 Time Not Available CONCLUSIONS CAD as described. LVEF is 45% with wall motion abnormalities ass described. No significant . Successful MEMO to ostial LCx and pOM1 RECOMMENDATIONS DESCRIPTION OF PROCEDURE The patient arrived to the procedure lab. The risks and benefits of the procedure as well as a full description of our services here and lack of surgical backup were fully explained to the patient and/or their significant other prior to the catheterization. The Timeout was completed, verifying the correct patient and procedure. The patient's procedural site was prepped and draped in the usual fashion. Local anesthetic was given subcutaneously to right radial region with Lidocaine 2%. Using a modified Seldinger technique, arterial access was obtained via the right radial artery, a 6Fr sheath was inserted.. Left Coronary Artery selective angiography was performed in multiple views using a 5 Fr. JL3.5 catheter. Right Coronary Artery selective angiography was then performed in multiple views using a 5 Fr. JR 4 catheter. Left Ventriculography was performed in TAN projection using a 5 Fr. Pigtail catheter xb3 Guide catheter was inserted and engaged into the LCA. bmw Guide wire was advanced to the Circumflex. Priority One inserted Pass # 1 Priority One Removed Angiogram performed post. emege 2.5 x 12 Balloon catheter was advanced across lesion in the circumflex, ostial. PTCA balloon inflated at 10 atms for 14 secs. Angiogram performed post balloon dilatation. resolute 3.0 x 12 Drug Eluting stent was advanced across the lesion in the circumflex, ostial. Angiogram performed post stent deployment. runthrough Guide wire was advanced to the 1st OM. emerge 2.25 x 20 Balloon catheter was advanced across lesion in the first obtuse marginal, proximal. PTCA balloon inflated at 6 atms for 5 secs. PTCA balloon inflated at 6 atms for 6 secs. Angiogram performed post balloon dilatation. resolute 2.75 x 30 Drug Eluting stent was advanced across the lesion in the first obtuse marginal, proximal. Angiogram performed post stent deployment. emerge 2.75 x 12 Balloon catheter was inserted post stent on runthrough to om1 emerge 2.5 x 12 Balloon catheter was inserted post stent on bmw to ostial circ Angiogram performed post balloon dilatation. Angiogram performed post balloon dilatation. The arterial sheath was pulled and a TR Band was applied for hemostasis CORONARY ANGIOGRAPHY DOMINANCE: Right Dominant LEFT HEART ASSESSMENT Left Ventricular Ejection Fraction: by LV Gram 45 % Anterolateral and posterolateral hypokinesis LEFT MAIN: Mild luminal irregularities LEFT ANTERIOR DESCENDING ARTERY: Mild luminal irregularities CIRCUMFLEX ARTERY: OSTIAL CIRC: 100 % Stenosis OM 1: Proximal - 80 % Stenosis RIGHT CORONARY ARTERY: Mild luminal irregularities VALVE FINDINGS: No Aortic Valve Stenosis Could not assess due to PVCs INTERVENTION INFORMATION LESION SITE: Circumflex (Ostial) Lesion Complexity: High/C, chronic total occlusion: No, lesion at bifurcation: Yes, thrombus present: Yes, lesion length: 12 mm, culprit lesion: Yes, Previously treated lesion: No Pre Stenosis: 100 % Pre intervention RAFFAELE flow: 0 PROCEDURE: Thrombectomy, Drug Eluting Stent with pre and post dilatation Post Stenosis: 0 % Post intervention RAFFAELE flow: 3 Lesion Devices: Ozuan .014 190cm BMW [place] Straight Terumo Priority One Aspiration Catheter Armani Sci EMERGE MR 2.50x12 BALLOON Medtronic Resolute [place] RX MEMO 3.0x12 LESION SITE: 1st OM (Proximal) Lesion Complexity: High/C, chronic total occlusion: No, lesion at bifurcation: Yes, thrombus present: Yes, lesion length: 29 mm, culprit lesion: Yes, Previously treated lesion: No Pre Stenosis: 80 % Pre intervention RAFFAELE flow: 3 PROCEDURE: Drug Eluting Stent with pre and post dilatation Post Stenosis: 0 % Post intervention RAFFAELE flow: 3 Lesion Devices: Terumo .014 180cm Runthrough Extra Floppy straight Armani Sci EMERGE MR 2.25x20 BALLOON Medtronic Resolute [place] RX MEMO 2.75x30 COMPLICATIONS No Complications PROCEDURE MEDICATIONS Oxygen: 2 L/min via nasal cannula Brilinta 180 mg PO @ 06/30/2023 01:39:39 Heparin given IA 06/30/2023 01:49:56 Heparin 3000 unit(s) IV 06/30/2023 02:23:10 Nitro 100 mcg IC 06/30/2023 02:54:03 Verapamil 1.5mg, Ntg 50mcgs, 3000 units of Heparin given IA 06/30/2023 01:49:56 SUMMARY OF HEMODYNAMIC DATA Time AIR REST ECG 01:29:42 AO 91/67 (79) SA 01:52:00 LV 85/5, 20 02:07:07 LV 72/11, 23 02:07:14 AO 99/60 (76) 02:43:35 Signed By Thi Worthington MD On 06/30/2023 03:56:28 Thi Worthington MD
[2023-06-30 04:28] LABS: ALB/GLOB Ratio 0.9 RATIO (0.9-2.4); AST(SGOT) 113 U/L (15-37); Alanine Aminotransfer ALT/SGPT 37 U/L (13-56); Albumin, Serum 3.2 g/dL (3.2-5.0); Alkaline Phosphatase 113 U/L (45-117); Anion Gap 6 (5-15); BUN 21 mg/dL (7-18); BUN/Creat Ratio 17.4 RATIO (10-20); Chloride 111 mmol/L (98-107); Creatinine, Serum 1.21 mg/dL (0.55-1.02); EST Glomerular Filtration Rate 49 mL/min (>60); Est Glom Filt Rate - Afr Amer 59 mL/min (>60); Ferritin 7 ng/mL (8-252); Globulin 3.7 g/dL (2.2-4.2); Glucose 136 mg/dL (74-106); Iron 18 ug/dL (50-170); Iron Binding Capacity,Total 373 ug/dL (250-450); PERCENT IRON SATURATION 4.8 % (15.0-55.0); Potassium 4.1 mmol/L (3.5-5.1); Protein, Total 6.9 g/dL (6.4-8.2); Sodium Level 142 mmol/L (136-145); T4 Free Direct 0.76 ng/dL (0.76-1.46)
--- NOTE | 2023-06-30 04:45 | NURSING ---
0445- remaining 2 cc of air removed from TR band, R radial TR band removed. No bleeding at sit. Opsite applied to puncture site. Pt tolerated well.
[2023-06-30 05:45] LABS: Vitamin B12 201 pg/mL (211-911)
[2023-06-30] MEDS: Acetaminophen 325 MG Tablet 650 MG PO (06:27)
--- NOTE | 2023-06-30 07:47 | PCM.HOSP.N ---
Hospitalist Note Patient was seen and examined today, she is resting comfortably in ICU, she does not complain of any chest pain. Patient was admitted early this morning with a STEMI, she had MEMO placement in the ostial circumflex artery and proximal obtuse marginal. Echocardiogram will be performed today.
[2023-06-30] MEDS: Cyanocobalamin 500 MCG Tablet 1000 MCG PO (08:07)
[2023-06-30] MEDS: TICAGRELOR 90 MG TABLET PO ×2 (08:08→20:47)
[2023-06-30] MEDS: Ferrous Gluconate 324 MG Tablet PO ×2 (08:08→16:33)
[2023-06-30] MEDS: Carvedilol 3.125 MG TABLET PO ×2 (08:08→16:33)
[2023-06-30] MEDS: Multivitamins,Therapeutic Tablet 1 TABLET PO (08:08)
[2023-06-30] MEDS: Aspirin 81 MG TAB.CHEW PO (08:08)
[2023-06-30] MEDS: Influenza Virus Vac Quad 23-24 60 MCG/0.5 ML SYRINGE IM (08:10)
[2023-06-30 08:17] LABS: Hemoglobin A1c 6.6 % (3.8-5.6)
[2023-06-30 08:32] LABS: Bedside Glucose 96 mg/dL (74-106)
--- NOTE | 2023-06-30 09:57 | PCM.PN.CARD ---
Subjective Subjective Patient seen and evaluated. Appears to be stable. Status post STEMI and left circumflex PCI Objective Data Vital Signs: Vital Signs Temp Pulse Resp BP Pulse Ox O2 Del Method 98.5 F 80 18 91/64 95 Room Air 06/30/23 09:00 06/30/23 09:00 06/30/23 09:00 06/30/23 09:00 06/30/23 09:00 06/30/23 09:00 Oxygen Delivery Method Room Air Weight: 164 lb 14.492 oz Body Mass Index (BMI) 26.4 Intake & Output: Intake and Output for Last 24 Hours 06/28/23 06/29/23 06/30/23 23:59 23:59 23:59 Intake Total 121.95 / 121.95 Balance 121.95 / 121.95 Lab / Micro Data 06/30/23 03:25 06/30/23 03:25 Labs: Laboratory Results - last 24 hr 06/30/23 00:20: WBC 12.8 H, RBC 4.03 L, Hgb 9.0 L, Hct 31.1 L, MCV 77.2 L, MCH 22.3 L, MCHC 28.9 L, RDW Std Deviation 45.4 H, RDW Coeff of Rylee 16.5 H, Plt Count 487 H, MPV 10.0, Immature Gran % (Auto) 1.600 H, Neut % (Auto) 73.6 H, Lymph % (Auto) 17.3 L, Dickens % (Auto) 4.6, Eos % (Auto) 2.0, Baso % (Auto) 0.9, Absolute Neuts (auto) 9.5 H, Absolute Lymphs (auto) 2.22, Nucleated RBC % 0, Sodium 141, Potassium 3.5, Chloride 111 H, Carbon Dioxide 22.0, Anion Gap 8, BUN 23 H, Creatinine 1.37 H, Estim Creat Clear Calc 42.92, Est GFR (MDRD) Af Amer 51 L, Est GFR (MDRD) Non-Af 42 L, BUN/Creatinine Ratio 16.8, Glucose 267 H, Calcium 8.4 L, Troponin I High Sens 26 06/30/23 00:30: PT 13.3, INR 1.0, APTT 24.8, Magnesium 2.2, B-Natriuretic Peptide 25.7 06/30/23 03:25: WBC 14.2 H, RBC 3.82 L, Hgb 8.6 L, Hct 29.4 L, MCV 77.0 L, MCH 22.5 L, MCHC 29.3 L, RDW Std Deviation 45.4 H, RDW Coeff of Rylee 16.4 H, Plt Count 441, MPV 10.1, Immature Gran % (Auto) 1.300 H, Neut % (Auto) 83.4 H, Lymph % (Auto) 11.4 L, Dickens % (Auto) 3.2, Eos % (Auto) 0.3, Baso % (Auto) 0.4, Absolute Neuts (auto) 11.8 H, Absolute Lymphs (auto) 1.62, Nucleated RBC % 0, Sodium 142, Potassium 4.1, Chloride 111 H, Carbon Dioxide 25.0, Anion Gap 6, BUN 21 H, Creatinine 1.21 H, Estim Creat Clear Calc 48.60, Est GFR (MDRD) Af Amer 59 L, Est GFR (MDRD) Non-Af 49 L, BUN/Creatinine Ratio 17.4, Glucose 136 H, Hemoglobin A1c 6.6 H, Calcium 8.0 L, Iron 18 L, TIBC 373, Iron Saturation 4.8 L, Ferritin 7 L, Total Bilirubin 0.30, AST 113 H, ALT 37, Alkaline Phosphatase 113, Troponin I High Sens 39087 H*, Total Protein 6.9, Albumin 3.2, Globulin 3.7, Albumin/Globulin Ratio 0.9, Vitamin B12 201 L, Folate 16.00, TSH 15.00 H, Free T4 0.76 06/30/23 06:21: Troponin I High Sens 18538 H* 06/30/23 08:03: POC Glucose 96 Rhythm Strip Rhythm Strip: Sinus Rhythm Rate: 92 Ectopy: None Cardiology Labs/Tests 06/30/23 00:20: WBC 12.8 H, RBC 4.03 L, Hgb 9.0 L, Hct 31.1 L, MCV 77.2 L, MCH 22.3 L, MCHC 28.9 L, Plt Count 487 H, MPV 10.0, Immature Gran % (Auto) 1.600 H, Neut % (Auto) 73.6 H, Lymph % (Auto) 17.3 L, Dickens % (Auto) 4.6, Eos % (Auto) 2.0, Baso % (Auto) 0.9, Absolute Neuts (auto) 9.5 H, Nucleated RBC % 0, Sodium 141, Potassium 3.5, Chloride 111 H, Carbon Dioxide 22.0, Anion Gap 8, BUN 23 H, Creatinine 1.37 H, Est GFR (MDRD) Af Amer 51 L, Est GFR (MDRD) Non-Af 42 L, BUN/Creatinine Ratio 16.8, Glucose 267 H, Calcium 8.4 L 06/30/23 00:30: PT 13.3, INR 1.0, APTT 24.8, Magnesium 2.2, B-Natriuretic Peptide 25.7 06/30/23 03:25: WBC 14.2 H, RBC 3.82 L, Hgb 8.6 L, Hct 29.4 L, MCV 77.0 L, MCH 22.5 L, MCHC 29.3 L, Plt Count 441, MPV 10.1, Immature Gran % (Auto) 1.300 H, Neut % (Auto) 83.4 H, Lymph % (Auto) 11.4 L, Dickens % (Auto) 3.2, Eos % (Auto) 0.3, Baso % (Auto) 0.4, Absolute Neuts (auto) 11.8 H, Nucleated RBC % 0, Sodium 142, Potassium 4.1, Chloride 111 H, Carbon Dioxide 25.0, Anion Gap 6, BUN 21 H, Creatinine 1.21 H, Est GFR (MDRD) Af Amer 59 L, Est GFR (MDRD) Non-Af 49 L, BUN/Creatinine Ratio 17.4, Glucose 136 H, Hemoglobin A1c 6.6 H, Calcium 8.0 L, Iron 18 L, TIBC 373, Iron Saturation 4.8 L, Ferritin 7 L, Total Bilirubin 0.30 Rhythm: EKG: ECHO: Stress Test: Cardiac Cath: PCI: CT Surgery: Holter monitor: EPS: PPM: CXR: Chest CT Scan: Radiography Diagnostic Testing: Radiology Impression Chest X-Ray 06/30/23 00:45 IMPRESSION: No radiographic evidence of acute cardiopulmonary disease. Electronically Signed: Sd Quezada MD at 1:38 EDT , Physical Exam Const alert, oriented x3 and no apparent distress General Appearance: cooperative HEENT hearing grossly normal bilaterally Head and Scalp: atraumatic Eyes EOMs intact bilaterally Neck General: normal visual inspection Chest inspection of chest normal and palpation of chest normal Resp normal respiratory effort Auscultation: clear to auscultation bilaterally Cardio regular rate, regular rhythm, S1 normal heart sound and S2 normal heart sound Jugular Venous Distention: JVD GI normal to inspection, nondistended, normoactive bowel sounds Extremity normal capillary refill and no pedal edema Peripheral Pulses: Yes pulses 2+ throughout and femoral pulses present Skin no rashes or lesions noted Neuro oriented x3 and CN's II-XII intact bilaterally Psych Appearance: grossly normal and appropriate Assessment & Plan Assessment/Plan (1) Acute [place], true posterior wall: PLAN: Patient is status post STEMI involving the left circumflex artery. This was angioplastied and stented. She appears to doing well this morning. Will obtain echocardiogram this morning and continue guideline directed medical therapy.
--- NOTE | 2023-06-30 10:00 | CASEMGMT ---
RN?CM?DAIRY EQUIPMENT SPECIALIST?CM?to room to meet with patient for initial transition planning/care coordination?assessment.?RN?CM?introduced self and role at [facility].? Pt voices understanding and consents to?assessment?at this time.? Pt resting in bed in no distress at this time.? Pt is A/O at this time and answers all questions appropriately.?? Care providers, pharmacy, and demographics verified/updated at this time. PCP: Dr Quinton Claudio Specialists: none Preferred Pharmacy: [facility] Insurance: [employer] for Life Prescription Benefit:?Yes. Provided w/Brilinta 30-day savings card and instructed on use. Pt instructed to f/u with commercial administrator if refills are not affordable to discuss other possible more affordable options. She voices understanding. Living Will/HPOA:? Pt does not currently have LW/HCPOA and interested in further information.? Provided information on advanced directives. Pt made aware SW would be unavailable to meet w/her this weekend for completion of forms, but she can f/u as an out-pt and make appt in the future if she decides she would like to complete in the future. LNOK: Yony Living Arrangements: Lives w/her , goddaughter and her 2 daughters (ages 2 and 3) in one-story home w/no steps to enter. Indep w/ADL's and manages her own medications. Pt and share home mgnt tasks. Transportation:?Pt states drives self and states no transportation concerns at this time.? also drives. DME: States has the following DME:?cane that she uses occasionally, lift chair, nebulizer, pulse ox. ? Pt states no need for further DME at this time.? HHC/SNF: No hx of either. Denies need for HHC and no needs identified. Pt wishes to return home and states has no concerns with going home at time of discharge.?CM?to follow for any further discharge planning/needs.? Pt voices no further concerns/needs at this time.? Advised pt to ask for?CM?if any further questions/concerns/needs arise.? Voices understanding. PLAN:??Home Eric BSN?RN?CM
[2023-06-30] MEDS: methIMAzole 5 MG TABLET PO ×2 (10:26→20:48)
--- NOTE | 2023-06-30 12:00 | EKG12_ITS ---
Test Reason : post pci Blood Pressure : / mmHG Vent. Rate : 078 BPM Atrial Rate : 078 BPM P-R Int : 122 ms QRS Dur : 084 ms QT Int : 416 ms P-R-T Axes : 027 081 077 degrees QTc Int : 474 ms Normal sinus rhythm Low voltage QRS Nonspecific ST and T wave abnormality Abnormal ECG Confirmed by KAILEE GOYAL, BRYSON ([id number]), film and video editor DAX MOODY ([id number]) on 07/12/2023 2:24:17 PM Referred By: Timo Worthington Confirmed By:BRYSON DUGAN MD
[2023-06-30 12:17] LABS: Bedside Glucose 95 mg/dL (74-106)
[2023-06-30] MEDS: 0.9% Saline Lock 10 ML Syringe IV (17:48)
[2023-06-30] MEDS: Atorvastatin Calcium 80 MG Tablet PO (20:47)
[2023-07-01] VITALS (21 sets, daily range): BP systolic 73–109; BP diastolic 49–82; PULSE 79–91; RESP 14–22; TEMP 36.4–37.1; O2SAT 93–100; BMI 26.8
--- NOTE | 2023-07-01 08:23 | DCINST_ITS ---
Discharge Instructions Diet Discharge Diet: No restrictions Activity Discharge Activity: Return to Normal Activity Weight Bearing Status: Full weight bearing Follow Up Care Test Results: Test results from this visit will be discussed in further detail at your follow- up appointment, if applicable. Discharge Plan Admission Admit Date/Time: 06/30/23 00:49 Primary Reason for Your Visit: STEMI Attending Provider: Quinton Morin Primary Care Provider: Quinton Claudio Consulting Providers: Timo Worthington; Leia Melissa Instructions Additional Instructions / Restrictions: If you cannot find ferrous gluconate [id number], you may take ferrous sulfate 325 mg twice a day instead You will need to follow-up with your family practitioner regarding your anemia You may take Tylenol for pain, avod taking Ibuprofen, Alleve or aspirin (other than the 81 mg daily dosr) Discharge Orders/Prescriptions Prescriptions: New atorvastatin 80 mg Tablet 80 mg PO QHS Qty: 30 0RF carvedilol 3.125 mg Tablet 3.125 mg PO BIDCM Qty: 60 0RF aspirin 81 mg Tablet,Chewable 81 mg PO BREAKFAST Qty: 0 0RF ferrous gluconate 324 mg (37.5 mg iron) Tablet 324 mg PO BIDCM Qty: 0 0RF Brilinta 90 mg Tablet 90 mg PO BID Qty: 60 0RF Continued multivitamin [Multiple Vitamins] 1 EACH tablet 1 ea PO DAILY albuterol sulfate [Ventolin HFA] 1 INHALER inhaler 1 - 2 puff inhalation Q4H PRN PRN (Reason: Sob &/Or Wheezing) melatonin-pyridoxine HCl (B6) 1 EACH tablet, IR and ER, biphasic 1 ea PO QHS PRN (Reason: Sleep) methimazole 5 mg tablet 5 mg PO BID Patient Comments: take 1 tablet by mouth twice a day with food Changed cyanocobalamin (vitamin B-12) 1,000 MCG capsule 2,000 mcg PO DAILY Qty: 1 0RF Discontinued ibuprofen 600 MG tablet 600 mg PO Q6H PRN (Reason: Pain) Qty: 60 1RF Referrals / Follow Up: Abhishek Mandujano MD [Med Staff - Active Staff] - See Referral Note (three weeks) Jessica Mejia DO [Med Staff - Active Staff] - Quinton Claudio DO [Primary Care Provider] - Within 2 Weeks (you will need a repeat CBC due to your anemia) Disposition Disposition (needs filled in before D/C Order can be placed): Home, Self Care
[2023-07-01 08:47] LABS: Cholesterol 121 mg/dL (200); High Density Lipoprotein 32 mg/dL; Triglycerides 78 mg/dL; Very Low Density Lipoprotein 16 mg/dL (5-40)
[2023-07-01] MEDS: Multivitamins,Therapeutic Tablet 1 TABLET PO (09:16)
[2023-07-01] MEDS: Ferrous Gluconate 324 MG Tablet PO ×2 (09:16→17:43)
[2023-07-01] MEDS: Aspirin 81 MG TAB.CHEW PO (09:16)
[2023-07-01] MEDS: TICAGRELOR 90 MG TABLET PO ×2 (09:17→20:59)
[2023-07-01] MEDS: Cyanocobalamin 500 MCG Tablet 1000 MCG PO (09:18)
[2023-07-01] MEDS: Famotidine 20 MG Tablet PO (09:18)
[2023-07-01] MEDS: methIMAzole 5 MG TABLET PO ×2 (09:19→21:00)
[2023-07-01] MEDS: Sodium Ferric Gluconat/Sucrose 250 MG in 0.9% Normal Saline (250mL Bag) 250 ML 135 MG IV (09:26)
--- NOTE | 2023-07-01 09:26 | PN.CARD_ITS ---
Subjective Subjective Patient seen and evaluated. Appears to be doing well. Objective Data Vital Signs: Vital Signs Temp Pulse Resp BP Pulse Ox O2 Del Method 98.6 F 83 20 H 98/62 98 Room Air 07/01/23 08:00 07/01/23 08:00 07/01/23 08:00 07/01/23 08:00 07/01/23 08:00 07/01/23 08:00 Oxygen Delivery Method Room Air Weight: 166 lb 0.129 oz Body Mass Index (BMI) 26.8 Intake & Output: Intake and Output for Last 24 Hours 06/29/23 06/30/23 07/01/23 23:59 23:59 23:59 Intake Total 1651.95 / 1651.95 Balance 1651.95 / 1651.95 Lab / Micro Data 06/30/23 03:25 06/30/23 03:25 Labs: Laboratory Results - last 24 hr 06/30/23 11:58: POC Glucose 95 07/01/23 08:25: Triglycerides 78, Cholesterol 121, LDL Cholesterol 73, VLDL Cholesterol 16, HDL Cholesterol 32 L Rhythm Strip Rhythm Strip: Sinus Rhythm Rate: 92 Ectopy: None Cardiology Labs/Tests 07/01/23 08:25: Triglycerides 78, Cholesterol 121, LDL Cholesterol 73, VLDL Cholesterol 16, HDL Cholesterol 32 L Rhythm: EKG: ECHO: Stress Test: Cardiac Cath: PCI: CT Surgery: Holter monitor: EPS: PPM: CXR: Chest CT Scan: Radiography Diagnostic Testing: Radiology Impression Echocardiogram 06/30/23 03:16 Interpretation Summary Normal LV size. Left ventricular systolic function is normal. The estimated ejection fraction is 60 %. Stage 2 diastolic dysfunction. Pulmonary artery systolic pressure is 38 mmHg. Moderate (2+) eccentric mitral valve insufficiency. Moderate papillary muscle dysfunction of the mitral valve. There are regional wall motion abnormalities as specified. Ordering Physician: Leia Melissa Referring Physician: Timo Worthington Performed By: Ilda Oro RCS Physical Exam Const alert, oriented x3 and no apparent distress General Appearance: cooperative HEENT hearing grossly normal bilaterally Head and Scalp: atraumatic Eyes EOMs intact bilaterally Neck General: normal visual inspection Chest inspection of chest normal and palpation of chest normal Resp normal respiratory effort Auscultation: clear to auscultation bilaterally Cardio regular rate, regular rhythm, S1 normal heart sound and S2 normal heart sound Jugular Venous Distention: JVD Heart Sounds: murmur GI normal to inspection, nondistended, normoactive bowel sounds Extremity normal capillary refill and no pedal edema Peripheral Pulses: Yes pulses 2+ throughout and femoral pulses present Skin no rashes or lesions noted Neuro oriented x3 and CN's II-XII intact bilaterally Psych Appearance: grossly normal and appropriate Assessment & Plan Assessment/Plan (1) Acute [place], true posterior wall: PLAN: Patient is status post STEMI involving the left circumflex artery. This was angioplastied and stented. She appears to doing well this morning. * Echocardiogram demonstrated preserved left ventricular systolic function. Wall motion abnormalities involving the mid lateral and basal lateral wall with moderate mitral regurgitation. We will continue with the current medical therapy. * Will DC the lisinopril for now * Continue beta-aubrey high intensity statin aspirin and ticagrelor. * We will see how patient's blood pressure is doing today. If it is improved we may be able to let her go home and follow-up as an outpatient.
[2023-07-01] MEDS: 0.9% Saline Lock 10 ML Syringe IV ×2 (09:27→11:52)
--- NOTE | 2023-07-01 10:00 | EKG12_ITS ---
Test Reason : am ekg Blood Pressure : / mmHG Vent. Rate : 091 BPM Atrial Rate : 091 BPM P-R Int : 126 ms QRS Dur : 084 ms QT Int : 378 ms P-R-T Axes : 030 103 095 degrees QTc Int : 464 ms Normal sinus rhythm Rightward axis Low voltage QRS Nonspecific ST abnormality Abnormal ECG When compared with ECG of 30-JUN-2023 12:00, MANUAL COMPARISON REQUIRED, DATA IS UNCONFIRMED Confirmed by KAILEE GOYAL, BRYSON ([id number]), food editor RUDY SILVA ([id number]) on 07/10/2023 1:05:40 PM Referred By: Timo Worthington Confirmed By:BRYSON DUGAN MD
--- NOTE | 2023-07-01 11:32 | PCM.DC.SUM ---
Providers Date of Admission: 06/30/23 Date of Discharge: 07/02/23 Primary Care Physician: Dr. Quinton Claduio, Consultations 06/30/23 03:16 Consult: Cardiology Routine Consulting Provider: Timo Worthington Reason for Consult: STEMI EMERGENT Consult: Yes MD Notified: Yes Date Notified: 06/30/23 Time Notified: 00:51 Method of Notification: ED Physician Initiated Reason For Visit: STEMI Diagnosis Discharge Diagnosis (1) Acute [place], true posterior wall: Status: Acute Code(s): I21.29 - ST elevation (STEMI) myocardial infarction involving other sites Plan 1. Acute STEMI-posterior wall, postop day 1 insertion of 2 MEMO in the circumflex artery disease (ostial circumflex and proximal obtuse marginal)-continue present medications, lisinopril was discontinued due to hypotension, continue to monitor blood pressure #2 hypotension-patient will remain on Coreg for now, she will be reevaluated for her evening Coreg dose, if she is hypotensive the dose may be held #3 iron deficiency anemia, etiology unclear-patient was given an infusion of iron today, nursing states that the patient told them that she was anemic due to uterine fibroid, however patient underwent hysterectomy in 2018 and she still has iron deficiency anemia. #4 B12 deficiency-patient's home B12 will need to be increased when she is discharged. #5 hypothyroidism-patient is on methimazole-I will obtain a T3 Medications at Discharge Home Medications albuterol sulfate 90 mcg/actuation aerosol inhaler (Ventolin HFA) 1 - 2 puff inhalation Q4H PRN PRN Sob &/Or Wheezing 10/04/17 melatonin ER 10 mg-pyridoxine HCl (B6) 10 mg tab, immed-extend release 1 ea PO QHS PRN Sleep 10/04/17 multivitamin (Multiple Vitamins tablet) 1 ea PO DAILY 10/04/17 methimazole 5 mg tablet 5 mg PO BID 06/30/23 aspirin 81 mg chewable tablet 81 mg PO BREAKFAST #0 tabs 07/01/23 atorvastatin 80 mg tablet 80 mg PO QHS #30 tabs 07/01/23 carvedilol 3.125 mg tablet 3.125 mg PO BIDCM #60 tabs 07/01/23 cyanocobalamin (vitamin B-12) 1,000 mcg capsule 2,000 mcg (2 x 1,000 mcg) PO DAILY #1 cap 07/01/23 ferrous gluconate 324 mg (37.5 mg iron) tablet 324 mg PO BIDCM #0 tabs 07/01/23 ticagrelor 90 mg tablet (Brilinta) 90 mg PO BID #60 tabs 07/01/23 Hospital Course Operations None Procedures Cardiac catheterization (With MEMO placement in the circumflex artery) Summary of Care Provided Minutes Spent on Discharge: 32 Hospital Course: This 58-year-old white female was seen in the emergency room at [facility] with a chief complaint of substernal chest discomfort, the chest pain radiated to her neck jaw and left arm, it was associated with nausea diaphoresis and shortness of breath. EKG was obtained which showed significant anterior lateral changes concerning for posterior KS, the on-call shingle shearing machine operator was contacted and repeat exam noted that her chest pain was worse, the STEMI team was called and the patient was taken to Histology Manager, there was occlusive coronary disease in the circumflex artery and 2 MEMO were inserted. Patient did well during her hospitalization, echocardiogram showed a normal EF, she did have some problems with hypotension from an unknown reason, this resolved at the time of her discharge from the hospital. Patient was also noted to have iron deficiency anemia, she was given infusions of Venofer during her hospitalization. On 07/02/2023, patient was seen and examined: On examination she appeared in good health and spirits, she does not appear to be in any distress. Vital signs as documented. Skin warm and dry and without overt rashes. Neck without JVD, thyroid appears normal, trachea is midline, neck is supple. Lungs clear, normal air movement was noted. Heart exam notable for regular rhythm, normal sounds and absence of murmurs, rubs or gallops. Abdomen unremarkable and without evidence of organomegaly, masses, or abdominal aortic enlargement, bowel sounds are present in all 4 quadrants, no abdominal tenderness was noted. Extremities nonedematous, no cyanosis was noted, no clubbing was noted. Neuro: Cranial nerves II through XII are grossly intact, no focal motor deficits were noted, sensation to light touch and pinprick is intact, motor exam 5/5 throughout. Psych: Patient is alert and oriented x3, she does not appear anxious or depressed, she does not appear agitated. On 07/02/2023, patient was seen and examined and was discharged in stable condition. Weight / BMI Weight Weight: 75.3 kg Body Mass Index (BMI) 26.8 ABG / Lab / Microbiology Data 07/02/23 06:15 07/02/23 06:15 Laboratory: Laboratory Results - last 24 hr 06/30/23 11:58: POC Glucose 95 07/01/23 08:25: Triglycerides 78, Cholesterol 121, LDL Cholesterol 73, VLDL Cholesterol 16, HDL Cholesterol 32 L Radiography Diagnostic Testing: Radiology Impression Echocardiogram 06/30/23 03:16 Interpretation Summary Normal LV size. Left ventricular systolic function is normal. The estimated ejection fraction is 60 %. Stage 2 diastolic dysfunction. Pulmonary artery systolic pressure is 38 mmHg. Moderate (2+) eccentric mitral valve insufficiency. Moderate papillary muscle dysfunction of the mitral valve. There are regional wall motion abnormalities as specified. Ordering Physician: Leia Melissa Referring Physician: Timo Worthington Performed By: Ilda Oro RCS D/C Instructions Discharge Diet: No restrictions Weight Bearing Status: Full weight bearing Meaningful Use Info Meaningful Use Diagnoses (Choose all that apply): AMI AMI/Post PCI/Angioplasty Aspirin given w/in 24hrs of arrival?: Yes ASA at discharge?: Yes Antiplatelet Therapy at Discharge:: Yes Statins at discharge?: Yes Federico/ARB at discharge?: No Reason Federico/ARB not ordered:: Hypotension Beta Shavonne at discharge?: Yes Done w/ Acute KS measure.: Yes Documented LVEF (%): 60 Discharge Plan Admission Admit Date/Time: 06/30/23 00:49 Primary Reason for Your Visit: STEMI Attending Provider: Quinton Morin Primary Care Provider: Quinton Claudio Consulting Providers: Timo Worthington; Leia Melissa Instructions Additional Instructions / Restrictions: If you cannot find ferrous gluconate [id number], you may take ferrous sulfate 325 mg twice a day instead You will need to follow-up with your family practitioner regarding your anemia You may take Tylenol for pain, avod taking Ibuprofen, Alleve or aspirin (other than the 81 mg daily dosr) Discharge Orders/Prescriptions Prescriptions: New atorvastatin 80 mg Tablet 80 mg PO QHS Qty: 30 0RF carvedilol 3.125 mg Tablet 3.125 mg PO BIDCM Qty: 60 0RF aspirin 81 mg Tablet,Chewable 81 mg PO BREAKFAST Qty: 0 0RF ferrous gluconate 324 mg (37.5 mg iron) Tablet 324 mg PO BIDCM Qty: 0 0RF Brilinta 90 mg Tablet 90 mg PO BID Qty: 60 0RF Continued multivitamin [Multiple Vitamins] 1 EACH tablet 1 ea PO DAILY albuterol sulfate [Ventolin HFA] 1 INHALER inhaler 1 - 2 puff inhalation Q4H PRN PRN (Reason: Sob &/Or Wheezing) melatonin-pyridoxine HCl (B6) 1 EACH tablet, IR and ER, biphasic 1 ea PO QHS PRN (Reason: Sleep) methimazole 5 mg tablet 5 mg PO BID Patient Comments: take 1 tablet by mouth twice a day with food Changed cyanocobalamin (vitamin B-12) 1,000 MCG capsule 2,000 mcg PO DAILY Qty: 1 0RF Discontinued ibuprofen 600 MG tablet 600 mg PO Q6H PRN (Reason: Pain) Qty: 60 1RF Referrals / Follow Up: Abhishek Mandujano MD [Med Staff - Active Staff] - See Referral Note (three weeks) Jessica Mejia DO [Med Staff - Active Staff] - Quinton Claudio DO [Primary Care Provider] - Within 2 Weeks (you will need a repeat CBC due to your anemia) Disposition Disposition (needs filled in before D/C Order can be placed): Home, Self Care Charges/Coding Visit Charges Inpatient E&M: 58886 Disch Hosp >30min
[2023-07-01] MEDS: 0.9% Normal Saline (1000mL) 1,000 ML 250 ML IV (13:00)
--- NOTE | 2023-07-01 14:44 | PN.HOSP_ITS ---
Reason for Visit Reason for Visit: Diagnoses ST elevation (STEMI) myocardial infarction involving other sites (06/30/23) Chest pain, unspecified (06/30/23) Subjective Subjective Patient was seen and examined today, she has no complaints of any chest pain or shortness of breath, patient's blood pressure has been running low with systolic readings in the 80s and 90s, I gave her a bolus of 250 cc of normal saline and her KISHAN inhibitor was held today, despite this, her blood pressures remain low, cardiology feels that she should remain in the hospital at this time her hypotension. Objective Data Objective Data Vital Signs: Vital Signs Temp Pulse Resp BP Pulse Ox O2 Del Method 97.6 F L 84 21 H 81/59 L 99 Room Air 07/01/23 12:00 07/01/23 14:00 07/01/23 14:00 07/01/23 14:00 07/01/23 14:00 07/01/23 14:00 Oxygen Delivery Method Room Air Weight: 75.3 kg Body Mass Index (BMI) 26.8 Intake & Output: Intake and Output for Last 24 Hours 06/29/23 06/30/23 07/01/23 23:59 23:59 23:59 Intake Total 1651.95 / 1651.95 700 / 700 Balance 1651.95 / 1651.95 700 / 700 Lab / Micro Data 06/30/23 03:25 06/30/23 03:25 Labs: Laboratory Results - last 24 hr 07/01/23 08:25: Triglycerides 78, Cholesterol 121, LDL Cholesterol 73, VLDL Cholesterol 16, HDL Cholesterol 32 L Rhythm Strip Rhythm Strip: Sinus Rhythm Rate: 92 Ectopy: None Physical Exam Const alert, oriented x3, no apparent distress, average body habitus and healthy appearing General Appearance: cooperative, well kempt and well developed Orientation / Consciousness: awake, oriented to person, oriented to place and oriented to time HEENT normocephalic, head/scalp atraumatic and moist oral mucous membranes Eyes PERRL, EOMs intact bilaterally and conjunctivae normal Neck supple, no JVD, thyroid normal and no carotid bruits General: trachea midline Resp normal respiratory effort, no retractions, no use of accessory muscles and clear to auscultation bilaterally Auscultation: Negative for rales, rhonchi or wheezes Cardio regular rate, regular rhythm, S1 normal heart sound, S2 normal heart sound, no murmurs, no rub and no gallops GI normal to inspection, nondistended, normoactive bowel sounds, soft to palpation, non-tender and non-distended Extremity no clubbing, cyanosis or edema Skin no rashes or lesions noted General Skin Exam: no breakdown Neuro oriented x3, CN's II-XII intact bilaterally, no focal motor deficits and no sensory deficits noted Sensorium / Orientation: awake and alert Speech: speech normal Psych affect normal Assessment & Plan Assessment/Plan (1) Acute [place], true posterior wall: PLAN: Plan 1. Acute STEMI-posterior wall, postop day 1 insertion of 2 MEMO in the circumflex artery disease (ostial circumflex and proximal obtuse marginal)- continue present medications, lisinopril was discontinued due to hypotension, continue to monitor blood pressure #2 hypotension-patient will remain on Coreg for now, she will be reevaluated for her evening Coreg dose, if she is hypotensive the dose may be held #3 iron deficiency anemia, etiology unclear-patient was given an infusion of iron today, nursing states that the patient told them that she was anemic due to uterine fibroid, however patient underwent hysterectomy in 2018 and she still has iron deficiency anemia. #4 B12 deficiency-patient's home B12 will need to be increased when she is discharged. #5 hypothyroidism-patient is on methimazole-I will obtain a T3 Total clinical time spent by myself addressing the patient's medical issues, rev iewing all of her data, and collaborating with patient's care team: 35-minute Charges/Coding Visit Charges Inpatient E&M: 94362 Subs Hosp L2
[2023-07-01] MEDS: Atorvastatin Calcium 80 MG Tablet PO (21:00)
[2023-07-02 02:00] VITALS: BP 108/66; PULSE 87; RESP 16; TEMP 36.3; O2SAT 100
[2023-07-02 06:00] VITALS: BMI 27.3
[2023-07-02 06:26] LABS: Absolute Lymphocyte Count 1.41 X10^3/uL (0.83-4.51); Absolute Neutrophil Count 7.1 X10^3/uL (2.0-7.7); Basophil# 0.07 X10^3/uL; Basophil% 0.7 % (0-1); Eosinophil# 0.34 X10^3/uL; Eosinophils% 3.5 % (0-5); Hematocrit 27.8 % (37-47); Hemoglobin 8.1 g/dL (12.0-15.0); Lymphocyte # 1.41 X10^3/ul (0.83-4.51); Lymphocyte % 14.3 % (19-41); Mean Corp Hgb Conc 29.1 g/dL (32-36); Mean Corpuscular Hgb 22.5 pg (27.0-32.0); Mean Corpuscular Volume 77.2 fL (81-99); Mean Platelet Vol. 9.6 fl (6.2-12.0); Monocyte# 0.73 X10^3/uL; Monocyte% 7.4 % (0-10); NRBC Flagged by Analyzer 0 % (0-5); Neutrophil # 7.11 X10^3/uL (2.7-7.7); Neutrophil % 72.4 % (47-70); Platelet Count 332 K/mm3 (150-450); RBC Distribution Width CV 16.5 % (11.6-14.6); RBC Distribution Width SD 46.3 fl (35.1-43.9); White Blood Count 9.8 K/mm3 (4.4-11.0)
[2023-07-02 06:42] LABS: Anion Gap 5 (5-15); BUN 11 mg/dL (7-18); BUN/Creat Ratio 11.7 RATIO (10-20); Calcium,Total 8.2 mg/dL (8.5-10.1); Chloride 111 mmol/L (98-107); Creatinine, Serum 0.94 mg/dL (0.55-1.02); EST Glomerular Filtration Rate 65 mL/min (>60); Est Glom Filt Rate - Afr Amer 79 mL/min (>60); Estimated Creatinine Clearance 62.56 ml/min; Glucose 110 mg/dL (74-106); Potassium 3.7 mmol/L (3.5-5.1); Sodium Level 141 mmol/L (136-145)
--- NOTE | 2023-07-02 07:38 | PN.CARD_ITS ---
Subjective Subjective Patient seen and evaluated. Appears to be doing better this morning. Objective Data Vital Signs: Vital Signs Temp Pulse Resp BP Pulse Ox O2 Del Method 97.4 F L 87 16 108/66 100 Room Air 07/02/23 02:00 07/02/23 02:00 07/02/23 02:00 07/02/23 02:00 07/02/23 02:00 07/02/23 02:00 Oxygen Delivery Method Room Air Weight: 169 lb 8.568 oz Body Mass Index (BMI) 27.3 Intake & Output: Intake and Output for Last 24 Hours 06/30/23 07/01/23 07/02/23 23:59 23:59 23:59 Intake Total 1651.95 / 1651.95 940 / 940 Output Total 0 / 0 Balance 1651.95 / 1651.95 940 / 940 Lab / Micro Data 07/02/23 06:15 07/02/23 06:15 Labs: Laboratory Results - last 24 hr 07/01/23 08:25: Triglycerides 78, Cholesterol 121, LDL Cholesterol 73, VLDL Cholesterol 16, HDL Cholesterol 32 L 07/02/23 06:15: WBC 9.8, RBC 3.60 L, Hgb 8.1 L, Hct 27.8 L, MCV 77.2 L, MCH 22.5 L, MCHC 29.1 L, RDW Std Deviation 46.3 H, RDW Coeff of Rylee 16.5 H, Plt Count 332, MPV 9.6, Immature Gran % (Auto) 1.700 H, Neut % (Auto) 72.4 H, Lymph % (Auto) 14.3 L, Liberty % (Auto) 7.4, Eos % (Auto) 3.5, Baso % (Auto) 0.7, Absolute Neuts (auto) 7.1, Absolute Lymphs (auto) 1.41, Nucleated RBC % 0, Sodium 141, Potassium 3.7, Chloride 111 H, Carbon Dioxide 25.0, Anion Gap 5, BUN 11, Creatinine 0.94, Estim Creat Clear Calc 62.56, Est GFR (MDRD) Af Amer 79, Est GFR (MDRD) Non-Af 65, BUN/Creatinine Ratio 11.7, Glucose 110 H, Calcium 8.2 L Rhythm Strip Rhythm Strip: Sinus Rhythm Rate: 92 Ectopy: None Cardiology Labs/Tests 07/01/23 08:25: Triglycerides 78, Cholesterol 121, LDL Cholesterol 73, VLDL Cholesterol 16, HDL Cholesterol 32 L 07/02/23 06:15: WBC 9.8, RBC 3.60 L, Hgb 8.1 L, Hct 27.8 L, MCV 77.2 L, MCH 22.5 L, MCHC 29.1 L, Plt Count 332, MPV 9.6, Immature Gran % (Auto) 1.700 H, Neut % (Auto) 72.4 H, Lymph % (Auto) 14.3 L, Liberty % (Auto) 7.4, Eos % (Auto) 3.5, Baso % (Auto) 0.7, Absolute Neuts (auto) 7.1, Nucleated RBC % 0, Sodium 141, Potassium 3.7, Chloride 111 H, Carbon Dioxide 25.0, Anion Gap 5, BUN 11, Creatinine 0.94, Est GFR (MDRD) Af Amer 79, Est GFR (MDRD) Non-Af 65, BUN/Creatinine Ratio 11.7, Glucose 110 H, Calcium 8.2 L Rhythm: EKG: ECHO: Stress Test: Cardiac Cath: PCI: CT Surgery: Holter monitor: EPS: PPM: CXR: Chest CT Scan: Physical Exam Const alert, oriented x3 and no apparent distress General Appearance: cooperative HEENT hearing grossly normal bilaterally Head and Scalp: atraumatic Eyes EOMs intact bilaterally Neck General: normal visual inspection Chest inspection of chest normal and palpation of chest normal Resp normal respiratory effort Auscultation: clear to auscultation bilaterally Cardio regular rate, regular rhythm, S1 normal heart sound and S2 normal heart sound Jugular Venous Distention: JVD Heart Sounds: murmur GI normal to inspection, nondistended, normoactive bowel sounds Extremity normal capillary refill and no pedal edema Peripheral Pulses: Yes pulses 2+ throughout and femoral pulses present Skin no rashes or lesions noted Neuro oriented x3 and CN's II-XII intact bilaterally Psych Appearance: grossly normal and appropriate Assessment & Plan Assessment/Plan (1) Acute [place], true posterior wall: PLAN: Patient is status post STEMI involving the left circumflex artery. This was angioplastied and stented. She appears to doing well this morning. * Echocardiogram demonstrated preserved left ventricular systolic function. Wall motion abnormalities involving the mid lateral and basal lateral wall with moderate mitral regurgitation. We will continue with the current medical therapy. * Pulmonary pressures are not significantly elevated and we will hold off on Lasix for now * Will DC the lisinopril for now * Continue beta-aubrey high intensity statin aspirin and ticagrelor. * We will see how patient's blood pressure is doing today. If it is improved we may be able to let her go home and follow-up as an outpatient.
--- NOTE | 2023-07-02 07:46 | CRPHASE1_ITS ---
Patient Communication Patient Information PHII Cardiac Rehab Discussed with Patient:: Yes Guide to Cardiac Rehab Given to Patient:: Yes Cardiac Rehab Facility Choice List Given to Patient:: Yes Communication to Cardiac Rehab Choice Program [facility] CR PHII:: Communication Given to CR Director Industrial Relations:: Timo Worthington Phase II Cardiac Rehab:: Yes Sessions:: 36 sessions - 3 days/wk, 12 weeks Cardiac Rehabilitation Info Program Information Cardiac Rehabilitation Program Information: Cardiac Rehab The cardiac rehab team at [facility] consists of highly skilled exercise physiologists, nurses, respiratory therapists and physicians working together with you. Our purpose is to help you have a full recovery and achieve the goals you set for yourself. Over the years many of our patients have returned to activities they assumed they would never do again! We can help restore your confidence and motivation to make lifestyle changes that can have a significant impact on your health and quality of life! We can help answer questions and concerns you may have about exercise, lifestyle, medications, diet, stress and anxiety which are common following a hospitalization. WE monitor ECG and vital signs during exercise and discuss your progress with you and report to your physician(s). Cardiac Rehab is proven to help reduce readmissions, improve functional capacity and lower recurrence of problems with your heart. Our Cardiac Rehab program is Certified by the [place] [employer] Pulmonary [employer] (AACVPR) and Accredited by the [employer] through our [facility]. You can contact us at . We invite you to call us with your questions or to get started in our program. If you have other questions or concerns be sure to ask your physician/provider during your follow-up visit. WE look forward to seeing you!
--- NOTE | 2023-07-02 07:47 | CRPH1.INSTRU ---
General Education Discussed with Patient CAD and cardiac anatomy and function:: Patient communicates acknowledgment Explanation of diagnoses and procedures:: Patient communicates acknowledgment Sign/Symptoms of CA:: Patient communicates acknowledgment Antiplatelet therapy: Patient communicates acknowledgment Proper use of NTG-SL: Patient communicates acknowledgment Emergency procedures and activation of EMS: Patient communicates acknowledgment Compliance of all prescribed medications: Patient communicates acknowledgment Smoking Risk Factors Patient Nicotine/Smoking Risk Factors Are:: Cigarettes Recommendations Recommendations Include:: Smoking cessation strategies/Smoking packet, Participation in a smoking cessation program and Previous smoker; encourage continued cessation Response Code Nicotine/Smoking Response Code:: Patient communicates acknowledgment Dyslipidemia Risk Factors Patient Dyslipidemia Risk Factors Are:: Total Cholesterol, Triglycerides, HDL and LDL Recommendations Recommendations Include:: Lipid profile provided, Reviewed NCEP/ATP guidelines and Therapeutic Lifestyle Change dietary guidelines Response Code Dyslipidemia Response Code:: Patient communicates acknowledgment Overweight/Obesity Risk Factors Patient Overweight/Obesity Risk Factors Are:: Overweight = 26-29 Recommendations Recommendations Include:: Weight loss of 5-10%, Reduced calorie diet and Exercise 5-7 times/week Response Code Overweight/Obesity:: Patient communicates acknowledgment Hypertension Risk Factors Patient Hypertension Risk Factors Are:: No documented hx of HTN Heart Disease Risk Factors Patient Heart Disease Risk Factors Are:: Family history of heart disease < 65 years old Response Code Heart Disease Response Code:: Patient communicates acknowledgment Diabetes Risk Factors Patient Diabetes Risk Factors Are:: No documented hx of diabetes Metabolic Syndrome Risk Factors Patient Metabolic Syndrome Risk Factors Are [3 of 5]:: Fasting blood sugar > 100 mg/dL, Waist circumference > 35 [female] or 40 [male], High triglyceride >150 and Low HDL <40 [male] or < 50 [female] Recommendations Recommendations Include:: Reinforce compliance to risk factor modifications and Encouraged follow-up with Primary Care Physician Response Code Metabolic Syndrome Response Code:: Patient communicates acknowledgment Sedentary Risk Factors Patient Sedentary Risk Factors Are:: Lack of regular exercise Recommendations Recommendations Include:: Aerobic exercise 5-7 times/week for 20-30 minutes continuously, Benefits of regular exercise, Discussed home walking program and Monitored Outpatient Cardiac Rehab Response Code Sedentary Response Code:: Patient communicates acknowledgment Stress Recommendations Recommendations Include:: Identification of stressors, and assessment of coping skills and Stress management techniques Response Code Stress Response Code:: Patient communicates acknowledgment
[2023-07-02 07:49] VITALS: BP 95/58; PULSE 81; RESP 12; TEMP 36.6; O2SAT 96
[2023-07-02] MEDS: Sodium Ferric Gluconat/Sucrose 250 MG in 0.9% Normal Saline (250mL Bag) 250 ML 135 MG IV (08:34)
[2023-07-02] MEDS: methIMAzole 5 MG TABLET PO (08:35)
[2023-07-02] MEDS: 0.9% Saline Lock 10 ML Syringe IV (08:35)
[2023-07-02] MEDS: Famotidine 20 MG Tablet PO (08:36)
[2023-07-02] MEDS: Aspirin 81 MG TAB.CHEW PO (08:36)
[2023-07-02] MEDS: Cyanocobalamin 500 MCG Tablet 1000 MCG PO (08:36)
[2023-07-02] MEDS: TICAGRELOR 90 MG TABLET PO (08:37)
[2023-07-02] MEDS: Multivitamins,Therapeutic Tablet 1 TABLET PO (08:37)
--- NOTE | 2023-07-02 10:00 | EKG12_ITS ---
Test Reason : AM EKG Blood Pressure : / mmHG Vent. Rate : 087 BPM Atrial Rate : 087 BPM P-R Int : 128 ms QRS Dur : 090 ms QT Int : 384 ms P-R-T Axes : 038 087 100 degrees QTc Int : 462 ms Normal sinus rhythm Low voltage QRS Nonspecific ST and T wave abnormality Abnormal ECG Confirmed by KAILEE GOYAL, BRYSON ([id number]), manager editorial DAX MOODY ([id number]) on 07/10/2023 1:48:15 PM Referred By: Timo Worthington Confirmed By:BRYSON DUGAN MD
[2023-07-02 10:43] VITALS: BP 104/66
[2023-07-02 10:52] LABS: ACT Activated Clotting Time 203 sec (74-137)
[2023-07-02 11:06] VITALS: BP 104/66; PULSE 88; RESP 17; TEMP 36.4; O2SAT 95
[2023-07-02 14:20] LABS: T3 Total - Triiodothyronine 0.82 ng/mL (0.6-1.81)
== END 2023-07-02 12:25 | disposition home or self-care (01) | DRG 322 ==
LOC: ED 00:49 → ICU 01:26
PROVIDERS: Admitting Provider Family Medicine; Emergency Provider Emergency Medicine; PCP Family Medicine; Referring Provider Specialist; Visit Provider Internal Medicine
DX: I21.29 ST elevation (STEMI) myocardial infarction involving other sites (principal); D50.9 Iron deficiency anemia, unspecified; E05.00 Thyrotoxicosis with diffuse goiter without thyrotoxic crisis or storm; I34.0 Nonrheumatic mitral (valve) insufficiency; J45.909 Unspecified asthma, uncomplicated; E53.8 Deficiency of other specified B group vitamins; I25.10 Atherosclerotic heart disease of native coronary artery without angina pectoris; E66.3 Overweight; R73.9 Hyperglycemia, unspecified; Z87.891 Personal history of nicotine dependence; Z79.899 Other long term (current) drug therapy; Z68.27 Body mass index [BMI] 27.0-27.9, adult; Z82.49 Family history of ischemic heart disease and other diseases of the circulatory system
CPT/HCPCS: 36415; 71045; 80048; 80053; 80061; 82607; 82728; 82746; 82962; 83036; 83540; 83550; 83735; 83880; 84439; 84443; 84480; 84484; 85025; 85347; 85610; 85730; 92929; 92941; 93005; 93306; 93458; 94668; 94762; 97802; 99252; 99285; C1757; J7030; J7040; J7050; Q9967; 90686; A4216; C1725; C1769; C1874; C1887; C1894; C9601; C9606; G0463; J2405; J2916

== ENCOUNTER 2023-07-05 18:48 | Emergency (ER) | payer OTHER, SELFPAY ==
[2023-07-05 18:49] VITALS: BP 125/91; PULSE 107; RESP 18; TEMP 36.7; O2SAT 98; BMI 26.6
--- NOTE | 2023-07-05 19:32 | EDS_ITS ---
HPI History of Present Illness Chief Complaint: Wound Informant: patient and spouse/S.O. Narrative Narrative: Patient is concerned about possible infection in her left arm where she had an IV when she was in the hospital for recent [place]. Of note, the patient is on and is taking her Brilinta and aspirin. Patient had several IVs. She has noticed that the one in the left elbow/antecubital region is gotten red. It had a small pustule that then opened and drained. She also has 1 in the right forearm that is a little bit firm and red. But that is actually improving. She has not had fevers. No nausea vomiting. She is not having chest or pulmonary symptoms either. She has no allergies to antibiotics. 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) Chronic anemia Graves disease Iron deficiency anemia Overweight Vitamin B12 deficiency Home Medications albuterol sulfate 90 mcg/actuation aerosol inhaler (Ventolin HFA) 1 - 2 puff inhalation Q4H PRN PRN Sob &/Or Wheezing 10/04/17 [History Last Taken Unknown] melatonin ER 10 mg-pyridoxine HCl (B6) 10 mg tab, immed-extend release 1 ea PO QHS PRN Sleep 10/04/17 [History Last Taken Unknown] multivitamin (Multiple Vitamins tablet) 1 ea PO DAILY 10/04/17 [History Last Taken Unknown] methimazole 5 mg tablet 5 mg PO BID 06/30/23 [History Last Taken Unknown] aspirin 81 mg chewable tablet 81 mg PO BREAKFAST #0 tabs 07/01/23 [Rx Last Taken Unknown] atorvastatin 80 mg tablet 80 mg PO QHS #30 tabs 07/01/23 [Rx Last Taken Unknown] carvedilol 3.125 mg tablet 3.125 mg PO BIDCM #60 tabs 07/01/23 [Rx Last Taken Unknown] cyanocobalamin (vitamin B-12) 1,000 mcg capsule 2,000 mcg (2 x 1,000 mcg) PO DAILY #1 cap 07/01/23 [Rx Last Taken Unknown] ferrous gluconate 324 mg (37.5 mg iron) tablet 324 mg PO BIDCM #0 tabs 07/01/23 [Rx Last Taken Unknown] ticagrelor 90 mg tablet (Brilinta) 90 mg PO BID #60 tabs 07/01/23 [Rx Last Taken Unknown] doxycycline monohydrate 100 mg capsule 100 mg PO BID #20 CAPSULES 07/05/23 [Rx Last Taken Unknown] Allergy/AdvReac Type Severity Reaction Status Date / Time acetaminophen [From Vicodin] AdvReac Nausea Verified 06/30/23 00:03 codeine AdvReac Nausea Verified 06/30/23 00:03 hydrocodone [From Vicodin] AdvReac Nausea Verified 06/30/23 00:03 morphine AdvReac Nausea Verified 06/30/23 00:03 Family History Grandfather CAD (coronary artery disease) Maternal GF. Hypertension Heart disease Myocardial infarction Grandfather CAD (coronary artery disease) Paternal GF Hypertension Heart disease Myocardial infarction Uncle CAD (coronary artery disease) Maternal uncle. Hypertension Heart disease Myocardial infarction Uncle CAD (coronary artery disease) Paternal Uncle. Hypertension Heart disease Myocardial infarction Brother Myocardial infarction Hypertension Heart disease CAD (coronary artery disease) Father Diabetes Mother Hypertension Surgical History H/O unilateral oophorectomy History of dental surgery History of hysterectomy S/P appendectomy S/P tonsillectomy and adenoidectomy Stented coronary artery (06/30/23) Social History household members: spouse Smoking Status: Former smoker how long ago did patient quit smoking: Smoked couple cig/week x ~ 6 months in 1983, none since. alcohol intake: current alcohol intake frequency: 0-2 drinks per day details: Drinks 2, sometimes max 3 glasses wine 3/week. substance use type: does not use ROS ROS ED Constitutional Constitutional ED: Denies chills, fever(s), subjective or sweats ENT ENT ED: Denies rhinorrhea or sore throat Cardiovascular Cardiovascular: Denies chest pain or palpitations Respiratory/Chest Respiratory/Chest: Denies cough or dyspnea Gastrointestinal Gastrointestinal: Denies nausea or vomiting Musculoskeletal Musculoskeletal: Denies myalgias or neck pain Integumentary Reports abscess and rash Neurologic Neurologic: Denies paresthesias or weakness Hematologic/Lymphatic Hematologic/Lymphatic: Reports easy bleeding and easy bruising Allergic/Immunologic Allergic/Immunologic ED: Denies urticaria EXAM Physical Exam Narrative Exam Narrative: General: Patient awake alert nontoxic sitting comfortably in bed. HEENT shows no trauma. Mucous membranes are moist. Neck is supple no JVD Lungs are clear and saturations are normal at 98% on room air showing no hypoxia. Heart is regular. Rate about 90 now. Abdomen is benign. Extremities show no trauma. See below for skin exam. Skin: She has an area on the right forearm distally more overlying the radius. It is about 2 and 3:30 inches long and slightly indurated downstream of her IV. But it does not progress above that. Its not warm. In the left lateral antecubital fossa she has a erythematous area about 2 cm katherine und. In the center is a slight 5 mm white slightly necrotic area that is open. It is already opened and drained. It is not fluctuant. But the area around it is indurated. I do not think there is anything that can be drained out of there. Const Vital Signs: 07/05/23 18:49 Temperature 98.0 F Temperature Source Temporal Pulse Rate 107 H Respiratory Rate 18 Blood Pressure 125/91 H Blood Pressure Mean 102 Pulse Ox 98 Oxygen Delivery Method Room Air MDM MDM MDM Narrative Medical decision making narrative: I talked with the patient about options. I do not think this needs to be drained and is already opened and drained and is actually open now. The center is decompressed. I can express just clear fluid out of it now. I think the risk of cutting into a vein would be higher than the any benefit of incision and drainage. I do not think blood work is needed. She is not having pulmonary or chest symptoms. I do not think elevated white count would change her treatment. This patient is nontoxic, not nauseated vomiting, not septic appearing. There is no lymphangitic streaking. No proximal lymphadenopathy. I do think we need to get her on antibiotics. We did discuss returning if she develops fever nausea vomiting spread of the above findings or any other concerns. Discharge Plan Triage Chief Complaint: Wound ED Provider: Nazario Leonardo Dx/Rx/DC Orders Clinical Impression: Cutaneous abscess, Thrombophlebitis/phlebitis, superficial Instructions: ED Abscess Antibiotic Treatment Only Prescriptions: New doxycycline monohydrate 100 mg capsule 100 mg PO BID Qty: 20 0RF No Action multivitamin [Multiple Vitamins] 1 EACH tablet 1 ea PO DAILY albuterol sulfate [Ventolin HFA] 1 INHALER inhaler 1 - 2 puff inhalation Q4H PRN PRN (Reason: Sob &/Or Wheezing) melatonin-pyridoxine HCl (B6) 1 EACH tablet, IR and ER, biphasic 1 ea PO QHS PRN (Reason: Sleep) methimazole 5 mg tablet 5 mg PO BID Patient Comments: take 1 tablet by mouth twice a day with food atorvastatin 80 mg Tablet 80 mg PO QHS Qty: 30 0RF carvedilol 3.125 mg Tablet 3.125 mg PO BIDCM Qty: 60 0RF aspirin 81 mg Tablet,Chewable 81 mg PO BREAKFAST Qty: 0 0RF ferrous gluconate 324 mg (37.5 mg iron) Tablet 324 mg PO BIDCM Qty: 0 0RF Brilinta 90 mg Tablet 90 mg PO BID Qty: 60 0RF cyanocobalamin (vitamin B-12) 1,000 MCG capsule 2,000 mcg PO DAILY Qty: 1 0RF Primary Care Provider: Quinton Claudio Referrals: Quinton Claudio DO [Primary Care Provider] - 3-5 Days if not improving Disposition Disposition: Home, Self Care
[2023-07-05] MEDS: Doxycycline 100 MG CAPSULE PO (19:42)
== END 2023-07-05 19:48 | disposition home or self-care (01) ==
LOC: ED 19:44
PROVIDERS: Emergency Provider Emergency Medicine; PCP Family Medicine; Visit Provider Emergency Medicine
DX: L02.414 Cutaneous abscess of left upper limb (principal); I25.10 Atherosclerotic heart disease of native coronary artery without angina pectoris; I80.9 Phlebitis and thrombophlebitis of unspecified site; Z87.891 Personal history of nicotine dependence; J45.909 Unspecified asthma, uncomplicated; Z79.899 Other long term (current) drug therapy; Z90.710 Acquired absence of both cervix and uterus; Z90.49 Acquired absence of other specified parts of digestive tract; Z95.5 Presence of coronary angioplasty implant and graft
CPT/HCPCS: 99282

== ENCOUNTER → 2023-07-23 | Outpatient (CLI) | payer OTHER, SELFPAY ==
[2023-07-23 17:46] LABS: Absolute Lymphocyte Count 1.31 X10^3/uL (0.83-4.51); Absolute Neutrophil Count 5.5 X10^3/uL (2.0-7.7); Basophil# 0.05 X10^3/uL; Basophil% 0.7 % (0-1); Eosinophil# 0.18 X10^3/uL; Eosinophils% 2.4 % (0-5); Hematocrit 37.6 % (37-47); Hemoglobin 11.1 g/dL (12.0-15.0); Lymphocyte # 1.31 X10^3/ul (0.83-4.51); Lymphocyte % 17.3 % (19-41); Mean Corp Hgb Conc 29.5 g/dL (32-36); Mean Corpuscular Hgb 23.9 pg (27.0-32.0); Mean Platelet Vol. 11.1 fl (6.2-12.0); Monocyte# 0.48 X10^3/uL; Monocyte% 6.3 % (0-10); NRBC Flagged by Analyzer 0 % (0-5); Neutrophil % 72.8 % (47-70); POSITIVE MORPHOLOGY YES; Platelet Count 374 K/mm3 (150-450); RBC Distribution Width CV 21.3 % (11.6-14.6); RBC Distribution Width SD 60.5 fl (35.1-43.9); Red Blood Count 4.64 M/mm3 (4.2-5.4); White Blood Count 7.6 K/mm3 (4.4-11.0)
[2023-07-23 17:58] LABS: Vitamin B12 478 pg/mL (211-911)
[2023-07-23 18:05] LABS: Ferritin 103 ng/mL (8-252); Iron 38 ug/dL (50-170)
[2023-07-23 18:23] LABS: Differential Indicated SCAN CRITERIA MET
[2023-07-23 18:24] LABS: Anisocytosis 1+; Microcytosis 1+; Ovalocyte RARE; Platelet Estimate ADEQUATE (ADEQ); Red Cell Morphology N CHROM NORMAL (NORM C&C)
== END | disposition home or self-care (01) ==
LOC: BFHLAB 14:46
PROVIDERS: PCP Family Medicine; Referring Provider Family Medicine; Visit Provider Family Medicine
DX: D59.0 Drug-induced autoimmune hemolytic anemia (principal); E53.8 Deficiency of other specified B group vitamins; E05.00 Thyrotoxicosis with diffuse goiter without thyrotoxic crisis or storm
CPT/HCPCS: 36415; 82607; 82728; 83540; 84439; 84443; 85025

== ENCOUNTER → 2023-08-22 | Outpatient (CLI) | payer OTHER, SELFPAY ==
--- NOTE | 2023-08-22 10:26 | PCM.CR.HP2 ---
CR - History & Physical General Arrival date:: 08/22/23 Arrival time:: 10:28 Date of Referral:: 07/02/23 Date of CR Evaluation:: 08/22/23 Referring Physician: Dr. Worthington Primary Diagnosis: PCi with stenting History of Present Cardiac Event Onset Date PTCA or coronary stenting:: Yes Vessel: 06/30/23 ostial circumflex and proximal OM1 Medications Ambulatory Orders Medication Instructions Recorded albuterol sulfate 90 mcg/actuation 1 - 2 puff inhalation Q4H PRN PRN 10/04/17 aerosol inhaler (Ventolin HFA) Sob &/Or Wheezing melatonin ER 10 mg-pyridoxine HCl 1 ea PO QHS PRN Sleep 10/04/17 (B6) 10 mg tab, immed-extend release multivitamin (Multiple Vitamins 1 ea PO DAILY 10/04/17 tablet) methimazole 5 mg tablet 5 mg PO BID 06/30/23 aspirin 81 mg chewable tablet 81 mg PO BREAKFAST #0 tabs 07/01/23 cyanocobalamin (vitamin B-12) 2,000 mcg (2 x 1,000 mcg) PO DAILY 07/01/23 1,000 mcg capsule #1 cap ferrous gluconate 324 mg (37.5 mg 324 mg PO BIDCM #0 tabs 07/01/23 iron) tablet atorvastatin 80 mg tablet 80 mg PO QHS #90 tabs 07/17/23 carvedilol 3.125 mg tablet 3.125 mg PO BIDCM #180 tabs 07/17/23 clopidogrel 75 mg tablet (Plavix) 75 mg PO .COMPLEX #90 tabs 08/08/23 Allergies Allergies acetaminophen [From Vicodin] Adverse Reaction (Verified 07/17/23 14:13) Nausea codeine Adverse Reaction (Verified 07/17/23 14:13) Nausea hydrocodone [From Vicodin] Adverse Reaction (Verified 07/17/23 14:13) Nausea morphine Adverse Reaction (Verified 07/17/23 14:13) Nausea Sleep Disorder Evaluation Hx of Sleep Apnea: No Do you snore loudly (louder than talking or can be heard through closed doors)?: No Do you often feel tired/ fatigued/ sleepy during daytime?: No Has anyone observed you stop breathing during sleep?: No History of Hypertension (for STOP score): No STOP Results: Negative Advanced Directives Advanced Directives Power of Manager Corporate Strategy: No Living Will: No Advance Directives Information Provided: No Past Medical History Covid-19 Screening Physicial Symptoms Other Clinical Concerns Exposure Risk Pertinent Comorbidities Has a serious heart condition:: Yes Past Medical Illness Past Medical History (Updated 07/17/23 @ 16:54 by Rach Arnold NP, [employer]) Asthma J45.909 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 Hypertension Heart disease Myocardial infarction Grandfather CAD (coronary artery disease) Paternal GF Hypertension Heart disease Myocardial infarction Uncle CAD (coronary artery disease) Maternal uncle. Hypertension Heart disease Myocardial infarction Uncle CAD (coronary artery disease) Paternal Uncle. Hypertension Heart disease Myocardial infarction Brother Myocardial infarction Hypertension Heart disease CAD (coronary artery disease) Father Diabetes Mother Hypertension Social History Smoking History Smoking Status: Never smoker Hx Tobacco Use: No Alcohol Use Alcohol Usage: Yes (2 glasses of wine 2-3 days a week) Occupation Occupation (List type of work in comments):: Employed Hours worked per day:: 4 Hobbies, Recreation, Social Activities Hobbies: Sports, Woodworking, Reading and Hiking Recreational Activities: I am able to engage in all my recreational activities Social Environment Status Marital Status: Current Living Arrangements Living Environment:: Family Children How many children do you have?: 4 Do any of your children live nearby?: Yes Safety Do you feel safe in your surroundings?: Yes Assistance Do you need any assistance at home?: no Review of Systems Review of Systems Hints Review of Present Symptoms: Reports Shortness of Breath with Exertion, Fatigue, Heart Arrhythmia/Irregularities, Appetite - Normal, Appetite - Special Diet and Sleep - Normal; Denies Shortness of Breath at Rest, PVD, Operative Discomfort, Angina, Wound Healing, Dizziness/Lightheadedness or Sexual Changes Pain Is Patient Pain Free?: No Pain Location: other (neck, knee, hands, ankles) Pain Level: 4/10 Risk Factor Assessment Chief Complaint Chief Complaint: PPCI with stenting Vital Signs Pulse Ox: 95 Blood Pressure: 114/77 Pulse Pulse Rate: 92 Stress Stress: Home/Family Obesity Height: 5 ft 6 in Weight:: 158 lb Weight in Pounds: 158.0 lbs Body Mass Index (BMI): 25.4 Physical Inactivity Physical Inactivity: Recreational activity Risk Stratification Risk Guidelines: Lowest Risk: Risk Factor for Smoking and Risk Factor for Diabetes and Moderate Risk: Risk Factor for Dyslipidemia, Risk Factor for Obesity, Risk Factor for Hypertension, Risk Factor for Sedentary Lifestyle and Risk Factor for Depression For Smoking Smoking Risk Guidelines For Dyslipidemia Dyslipidemia Risk Guidelines For Diabetes Mellitus Diabetes Risk Guidelines For Obesity/Overweight Obesity/Overweight Risk Guidelines For Hypertension Hypertension Risk Guidelines For Sedentary Lifestyle Sedentary Lifestyle Risk Guidelines For Depression Depression Risk Guidelines Family History Family History Grandfather CAD (coronary artery disease) Maternal GF. Hypertension Heart disease Myocardial infarction Grandfather CAD (coronary artery disease) Paternal GF Hypertension Heart disease Myocardial infarction Uncle CAD (coronary artery disease) Maternal uncle. Hypertension Heart disease Myocardial infarction Uncle CAD (coronary artery disease) Paternal Uncle. Hypertension Heart disease Myocardial infarction Brother Myocardial infarction Hypertension Heart disease CAD (coronary artery disease) Father Diabetes Mother Hypertension Motivation Motivation to Participate On a scale of 1 to 10, how prepared are you to commit to attending program?: 10 What do you see as barriers to successfully being able to complete the program?: time What do you see as the benefits of succesfully completing the program? In other words, what do you hope to get out of participating in the program?: strength, energy Are there issues you are dealing with that will interfere with completing the program?: no Do you have a spouse or signficant other, family or friends who will help support you to complete the program?: yes
[2023-08-22 10:35] VITALS: BP 114/77; PULSE 92; O2SAT 95
--- NOTE | 2023-08-22 10:35 | PCM.CR.ITP ---
Diagnosis General Information Admitting Diagnosis: PCi with stent Personal Learning Style:: Audio/Visual Stage of change r/t lifestyle modifications:: Contemplation Gave educational material for:: Treating Heart Disease, How The Heart Works, What it means to have Heart Disease, How Coronary Artery Disease is Diagnosed, Heart Procedures, What Heart Medications Do, Risk Factors & Modifications, Living an Active Life, Nutrition, Emotions & Heart Disease, Stress Management & Relaxation and Sleep Disorders & Heart Disease Education/Goals Cardiac Rehabilitation Goals Personal Goals: Initial Assessment: Improve management of stress and emotions, Improve energy level, Participate in home exercise program, Improve muscle strength and endurance and Control risk factors (learn risk factor modification) Scale for measuring improvement of personal goals Diagnosis & Disease Process Outcomes/Goals: Pt IDs own risk factors & lifestyle modifications by Session 10, Verbalizes symptoms of angina & response by session 3., Pt independently manages and Other Additional Outcomes/Goals: Plan/Interventions: Assist Pt to ID & engage in lifestyle modification to reduce CVD risk, Instruct on individual risk factors, Review symptoms of angina & emergency actions, Review secondary diagnosis & identify educational needs. and Other see comment 30 day Reassessments:: Not Met 30 day Reassessments:: Not Met 30 day Reassessments:: Not Met 30 day Reassessments:: Not Met Final Reassessments:: Not Met Safety Referral to Physical Therapy: No Referral to [facility] Case Management: No Fall Risk Assessed:: Yes Assistive Devices:: None Exercise - Initial Assessment Visit Date of Eval: 08/22/23 (initial eval ) Mets: Pre-: >3 METS for 30 minutes by discharge, >5 METS for 30 minutes by discharge, >7 METS for 30 minutes by discharge and Unable to meet goal due to: (see comment below) Physician Prescribed Exercise Modalities: Treadmill, Rower, Airdyne, NuStep, SciFit and Lateral Program Rep Frequency: 3x/week for 12 weeks [36 sessions] Intensity: 60-80% of age predicted maximum heart rate reserve Duration: 30 - 45 minutes Target Heart Rate:: 98-114 Resting Blood Pressure: 114/77 EKG Type: NSR with nonspecific ST and T wave abnormality Outcomes & Goals Goals:: Verbalizes understanding of THR, RPE & goal METS by session 6, Documents in home exercise log/reports 30 min aerobic 5 day/wk by DC, Demonstrates accurate pulse taking by DC and Other additional outcome/goals: see below Intervention & Plan Exercise Program Goals: Instruct on personal THR & RPE, Instruct on MET level & personal MET goal, Show patient to take own pulse /validate performance until accurate, Instruct on home exercise and Other additional plan/int Physical Activity Home Exercise Physical Activity - Home Exercise: Safe Exercise, Warm-up, Self-monitoring, Cool-Down, Home Exercise > 30 min Daily and Sitting Time <3 hours/daily Outcomes & Goals Outcomes/Goals: Demonstrates correct Warm-up/exercise Cool-Down (S3) if = 2.5 METs, Verbalizes symptoms of exercise intolerance by Session 3 (S3), Demonstrate safe equipment use (S3) & follows exercise prescrition (6) and Other: See below Intervention & Plan Plan/Intervention: Instruct warm-up & cool-down if exercising at > 2 METs, Instruct on symptoms of exercise intolerance & actions to take, Instruct & monitor on saf, Assess intial functional capacity & safety risk and Other See below Nutrition - Initial Assessment Program Goals Nutrition Program Goals Patient has diagnosis of Hyperlipidemia (ICD E78)?: No Visit Date of Eval: 08/22/23 (initial eval ) Cholesterol/Lipids (Other Core Measures) Determine presence & major risk factors that modify LDL goal: Hypertension or hypertensive medication, Low HDL cholesterol <40 mg/dL*, Family history of premature CHD in Male < 55 years: female <65 yearsFa and Age men > 45 years; women >/= 55 years Outcomes/Goals: Pt IDs own risk factors & lifestyle modifications by Session 10, Verbalizes symptoms of angina & response by session 3., Pt independently manages and Other Additional Outcomes/Goals: Intervention/Plan: Advocate for lipid panel cholesterol medication if applicable, Instruct on personal lipid levels & lipid goals/NCEP guidelines, Instruct on cholesterol and Other additional plan/int Referral to dietitian:: No Diabetes (Other Core Measures) Diabetes Type: Not Applicable Weight Mgt (Other Care) Height: 5 ft 6 in Weight:: 158 lb BMI: 25.4 Diagnosis Overweight/Obesity BMI> 30% ICD-10 E66: No Diagnosis High BMI/Morbid Obesity BMI> 35% ICD-10 Z68: No Outcomes/Goals: Pt sets, maintains & shows weight loss goal & trend during rehab and Other additional outcomes/goals Intervention/Plan: Instruct on ideal BMI & set weight loss goal w/patient, Assist pt to ID & incorporate diet changes for weight loss by S9, Refer to Structured Weight Loss program as appropriate, Encourage goal of using 250-300dcal per session for weight loss and Other additional plan/interventions Healthy Eating Habits Will attend diet classes:: Yes Outcomes/Goals:: Consume diet rich in vegs,fruits,whole grain/high fiber,fish,lean meat, Limit sat/trans fats,cholesterol & added salts & sugars and Other additional outcome/goals: Intervention/Plan:: Assess current eating habits and Other Additional plan/interventions Education Gave educational materials for:: Signs & symptoms of hypoglycemia, Signs & symptoms of hyperglycemia, Relate diabetes to coronary artery disease and Healthy eating Core - Initial Assessment Visit Date of Eval: 08/22/23 (initial eval) Medication Compliance Preventative Medication(s):: Aspirin, Clopidogrel/P2Y12 inhibit, Statin/lipid and Beta aubrey H/O mental health issues: depression, anxiety, or addiction?: No Doesn?t believe in the benefits of treatment?: No Believes medications are unnecessary or harmful?: No Has a concern about medication side effects?: No Expresses concern over the cost of medications?: No Outcomes/Goals: Verbalizes medications,desired effect & common side effects @ DC, Pt self-reports following medication regimen, Keeps card in wallet w/medications listed by DC and Other additional outcome/goals: Interventions/plans: Instruct on medication effects & side effects, Review medication list w/patient every two weeks, Instruct importance of taking meds as ordered & assist problem solving and Other additional Tobacco Use Tobacco Use: Non-smoker Hypertension Resting Blood Pressure:: 114/77 [place] [employer] Hypertension Guidelines Outcomes/Goals: Able to verbalize/achieve optimal blood pressure <130/80, Incorporates diet changes & exercise for blood pressure control by DC and Other additional outcomes/goals Interventions/plan: Instruct on optimal blood pressure, hypertension & medications, Instruct on effects of sodium, alcohol, stress, exercise &hypertension and Other additional plan/interventions Tobacco Cessation Referral Smoking Cessation Referral:: No Individual Education/Counseling:: No Education Schedule Given:: Yes Psychosocial - Initial Assess VIsit Date of Eval: 08/22/23 (initial eval ) History of previous Mental disease:: No Target Goals Target Goals Psychosocial Test Tool Used:: [employer] QOL Cardiac and PHQ-9 Questionnaire phq-9 Severity Outcomes/Goals: See list Psychosocial Outcomes/Goals:: ID's personal stressors & 2 strategies to manage stress by discharge and Other Additional outcome/goals: Intervention/Plan: See List Interventions/Plan:: Assess stressors,coping strategies & signs of derpression on admission, Instruct/assist pt to develop coping & personal stress Mgt strategies, Refer to Behavioral Health if appropriate, Refer to Physician if appropriate, Instruct patient to recognize signs & symptoms of depression, Instruct patient to recog and Other additional plan/intervention Patient Health Questionnaire PHQ-9 Screening Initial Assessment: 1. Little interest or pleasure in doing things: Not at all 2. Feeling down, depressed, or hopeless: Several days 3. Trouble falling or staying asleep, or sleeping too much: Several days 4. Feeling tired or having little energy: More than half the days 5. Poor appetite or overeating: More than half the days 6. Feeling bad about yourself -- or that you are a failure or have let yourself or your family down: Several days 7. Trouble concentrating on things, such as reading the newspaper or watching television: Not at all 8. Moving or speaking so slowly that other people could have noticed. Or the opposite - being so fidgety or restless that you have been moving around a lot more than usual: Not at all 9. Thoughts that you would be better off , or of hurting yourself in some way: Not at all How difficult have these problems made it for you to do your work, take care of things at home, or get along with other people?: Not difficult at all Total Score: 7 CATHLEEN-Q SV Test Statements CAD is a disease of the arteries in the heart: True Examples of risk factors for heart disease: True Angina is chest pain or discomfort: True The benefits of resistance training include: True Eating more meat and dairy products: False Anti-platelet medications such as aspirin are important: True The only effective way to manage stress: True An exercise warm-up slowly increases heart rate: True Prepared, processed foods usually have high sodium: True Depression is common after a heart attack: True The statin medications lower cholesterol: True To control blood pressure, lower the amount of sodium: True If someone gets chest discomfort during walking: False Transfats are partially hydrogenated vegetable oils: True Sleep apnea that is not treated increases the risk: True To control cholesterol, one should become a vegetarian: False Someone knows if he/she is exercising at the right level: True Diabetes cannot be prevented with exercise & health eating: False Stress is a large risk for heart attack: True A diet that can help lower blood pressure is rich in: True Total Score Total Correct Responses: 17 Self-Efficacy 6-Item Scale Initial Assessment: We would like to know how confident you are in doing certain activities. Please select your confidence level for: Fatigue Select Number: 7 Physical Discomfort or Pain Select Number: 6 Emotional Distress Select Number: 7 Other Symptoms or Health Problems Select Number: 7 Different Tasks and Activities Select Number: 9 Medication Select Number: 9 Total Score:: 7 Nutrition Survey Nutrition Survey Instructions Scoring Instructions Nutrition Survey Initial: Have you lost >10 lbs over the past 2 months without trying?: No Are you following a special diet at home for diabetes, low fat, or low salt?: Yes Are you interested in meeting with a dietitian for help understanding your diet?: Yes Do you eat less than 3 meals a day?: Yes Do you eat fatty meats (restrepo, sausage, ribs, etc), fried foods, desserts, large amounts of salad dressings, margarine, butter, or cheese most days?: No Do you have food allergies? [Enter types in comment field]: Yes Do you eat in restaurants more than 3 times a week?: No Do you season food with salt, seasoning salt, or garlic salt?: No Do you used canned, boxed, frozen meals, or soups, seasoning packets?: Yes Total Score:: 5 Exercise - Final/Discharge Physician Prescribed Exercise Modalities: Treadmill, Rower, Airdyne, NuStep, SciFit and Lateral Program Rep Frequency: 3x/week for 12 weeks [36 sessions] Intensity: 60-80% of age predicted maximum heart rate reserve Target Heart Rate:: 98-114 Nutrition - 30-Day Assessment Weight Mgt (Other Care) Height: 5 ft 6 in Weight:: 158 lb BMI: 25.4 Nutrition - 60-Day Assessment Weight Mgt (Other Care) Height: 5 ft 6 in Weight:: 158 lb BMI: 25.4 Core - Final Assessment Hypertension Resting Blood Pressure:: 114/77 [place] [employer] Hypertension Guidelines Core - 60-Day Assessment Hypertension Resting Blood Pressure:: 114/77 [place] [employer] Hypertension Guidelines Psychosocial - 30-Day Assess Target Goals Target Goals Psychosocial - 60-Day Assess Target Goals Target Goals Psychosocial - 90-Day Assess Target Goals Target Goals Psychosocial - Final Assessmen Target Goals Target Goals Nutrition - 90-Day Assessment Weight Mgt (Other Care) Height: 5 ft 6 in Weight:: 158 lb BMI: 25.4 Nutrition - Final Assessment Program Goals Patient has diagnosis of Hyperlipidemia (ICD E78)?: No Weight Mgt (Other Care) Height: 5 ft 6 in Weight:: 158 lb BMI: 25.4
[2023-08-22 10:38] VITALS: BP 114/77
[2023-08-22 10:48] VITALS: BMI 25.4
[2023-08-22 11:16] VITALS: BMI 25.4
[2023-08-22 11:20] VITALS: BP 114/77
== END | disposition home or self-care (01) ==
LOC: CR 10:18
PROVIDERS: PCP Family Medicine; Referring Provider Internal Medicine Cardiovascular Disease; Visit Provider Internal Medicine Cardiovascular Disease
DX: Z95.5 Presence of coronary angioplasty implant and graft (principal); J45.909 Unspecified asthma, uncomplicated; I25.10 Atherosclerotic heart disease of native coronary artery without angina pectoris; E05.00 Thyrotoxicosis with diffuse goiter without thyrotoxic crisis or storm; D50.9 Iron deficiency anemia, unspecified; E66.3 Overweight; E53.8 Deficiency of other specified B group vitamins; Z90.710 Acquired absence of both cervix and uterus; Z90.49 Acquired absence of other specified parts of digestive tract; R06.02 Shortness of breath; R53.83 Other fatigue; I49.9 Cardiac arrhythmia, unspecified

== ENCOUNTER → 2023-08-22 | Outpatient (CLI) | payer OTHER, SELFPAY ==
[2023-08-22 12:41] LABS: Absolute Lymphocyte Count 1.79 X10^3/uL (0.83-4.51); Absolute Neutrophil Count 5.7 X10^3/uL (2.0-7.7); Basophil# 0.08 X10^3/uL; Basophil% 0.9 % (0-1); Eosinophil# 0.33 X10^3/uL; Eosinophils% 3.9 % (0-5); Hematocrit 39.5 % (37-47); Lymphocyte # 1.79 X10^3/ul (0.83-4.51); Lymphocyte % 21.2 % (19-41); Mean Corp Hgb Conc 30.4 g/dL (32-36); Mean Corpuscular Hgb 25.8 pg (27.0-32.0); Mean Corpuscular Volume 84.8 fL (81-99); Mean Platelet Vol. 10.8 fl (6.2-12.0); Monocyte# 0.47 X10^3/uL; Monocyte% 5.6 % (0-10); NRBC Flagged by Analyzer 0 % (0-5); Neutrophil # 5.69 X10^3/uL (2.7-7.7); Neutrophil % 67.3 % (47-70); POSITIVE MORPHOLOGY YES; Platelet Count 363 K/mm3 (150-450); RBC Distribution Width CV 20.9 % (11.6-14.6); RBC Distribution Width SD 63.7 fl (35.1-43.9); Red Blood Count 4.66 M/mm3 (4.2-5.4); White Blood Count 8.5 K/mm3 (4.4-11.0)
[2023-08-22 12:57] LABS: Differential Indicated SCAN CRITERIA MET
[2023-08-22 13:31] LABS: Ferritin 65 ng/mL (8-252); Iron 104 ug/dL (50-170)
[2023-08-22 13:33] LABS: Anisocytosis 2+; Differential Comment SCANNED; Macrocytosis 1+; Microcytosis 1+
== END | disposition home or self-care (01) ==
LOC: LAB 11:10
PROVIDERS: PCP Family Medicine; Visit Provider Family Medicine
DX: D50.9 Iron deficiency anemia, unspecified (principal); R73.9 Hyperglycemia, unspecified
CPT/HCPCS: 36415; 82728; 83036; 83540; 85025

== ENCOUNTER 2023-09-21 15:15 | Outpatient (RCR) | payer OTHER, SELFPAY ==
[2023-08-22 11:16] VITALS: BMI 25.4
--- NOTE | 2023-09-21 08:43 | PCM.CR.ITP ---
Exercise - Initial Assessment Visit Session #:: 11 Nutrition - Initial Assessment Weight Mgt (Other Care) Height: 5 ft 6 in Weight:: 161 lb BMI: 25.9 Psychosocial - Initial Assess Target Goals Target Goals Patient Health Questionnaire PHQ-9 Screening 30-Day Re-eval Assessment: 1. Little interest or pleasure in doing things: Not at all 2. Feeling down, depressed, or hopeless: Several days 3. Trouble falling or staying asleep, or sleeping too much: Several days 4. Feeling tired or having little energy: More than half the days 5. Poor appetite or overeating: Several days 6. Feeling bad about yourself -- or that you are a failure or have let yourself or your family down: Not at all 7. Trouble concentrating on things, such as reading the newspaper or watching television: Not at all 8. Moving or speaking so slowly that other people could have noticed. Or the opposite - being so fidgety or restless that you have been moving around a lot more than usual: Not at all 9. Thoughts that you would be better off , or of hurting yourself in some way: Not at all How difficult have these problems made it for you to do your work, take care of things at home, or get along with other people?: Not difficult at all Total Score: 5 Self-Efficacy 6-Item Scale 30-Day Re-eval Assessment: We would like to know how confident you are in doing certain activities. Please select your confidence level for: Fatigue Select Number: 7 Physical Discomfort or Pain Select Number: 6 Emotional Distress Select Number: 7 Other Symptoms or Health Problems Select Number: 7 Different Tasks and Activities Select Number: 9 Medication Select Number: 9 Total Score:: 7 Nutrition Survey Nutrition Survey Instructions Scoring Instructions Exercise - 30-day Assessment Visit Date of Eval: 09/21/23 Session #:: 11 Physician Prescribed Exercise Modalities: Treadmill, Airdyne and NuStep Frequency: 3x/week for 12 weeks [36 sessions] Intensity: 60-80% of age predicted maximum heart rate reserve Duration: 30 - 45 minutes Current METSs:: 3.5 Target Heart Rate:: 98-123 Current RPE:: 11 Maximum Excercise HR:: 120 Resting Blood Pressure: 140/90 Maximum Exercise Blood Pressure: 150/90 EKG Type: NSR to ST without ectopy Outcomes & Goals Goals:: Verbalizes understanding of THR, RPE & goal METS by session 6, Documents in home exercise log/reports 30 min aerobic 5 day/wk by DC, Demonstrates accurate pulse taking by DC and Other additional outcome/goals: see below Intervention & Plan Exercise Program Goals: Instruct on personal THR & RPE, Instruct on MET level & personal MET goal, Show patient to take own pulse /validate performance until accurate, Instruct on home exercise and Other additional plan/int 30-day Reassessments 30 day Reassessments:: Progressing Reassessment Notes & Comments:: RPE explained Physical Activity Home Exercise Physical Activity - Home Exercise: Safe Exercise, Warm-up, Self-monitoring, Cool-Down, Home Exercise > 30 min Daily and Sitting Time <3 hours/daily Outcomes & Goals Outcomes/Goals: Demonstrates correct Warm-up/exercise Cool-Down (S3) if = 2.5 METs, Verbalizes symptoms of exercise intolerance by Session 3 (S3), Demonstrate safe equipment use (S3) & follows exercise prescrition (6) and Other: See below Intervention & Plan Plan/Intervention: Instruct warm-up & cool-down if exercising at > 2 METs, Instruct on symptoms of exercise intolerance & actions to take, Instruct & monitor on saf, Assess intial functional capacity & safety risk and Other See below 30-day Reassessments 30 day Reassessments:: Progressing Reassessment Notes & Comments:: warm up encouraged Nutrition - 30-Day Assessment Program Goals Nutrition Program Goals Patient has diagnosis of Hyperlipidemia (ICD E78)?: No Visit Date of Eval: 09/21/23 Session #:: 11 Cholesterol/Lipids (Other Core Measures) Determine presence & major risk factors that modify LDL goal: Hypertension or hypertensive medication, Low HDL cholesterol <40 mg/dL*, Family history of premature CHD in Male < 55 years: female <65 yearsFa and Age men > 45 years; women >/= 55 years Outcomes/Goals: Pt IDs own risk factors & lifestyle modifications by Session 10, Verbalizes symptoms of angina & response by session 3., Pt independently manages and Other Additional Outcomes/Goals: Intervention/Plan: Advocate for lipid panel cholesterol medication if applicable, Instruct on personal lipid levels & lipid goals/NCEP guidelines, Instruct on cholesterol and Other additional plan/int Referral to dietitian:: No Diabetes (Other Core Measures) Diabetes Type: Not Applicable Weight Mgt (Other Care) Height: 5 ft 6 in Weight:: 161 lb BMI: 25.9 Diagnosis Overweight/Obesity BMI> 30% ICD-10 E66: No Diagnosis High BMI/Morbid Obesity BMI> 35% ICD-10 Z68: No Outcomes/Goals: Pt sets, maintains & shows weight loss goal & trend during rehab and Other additional outcomes/goals Intervention/Plan: Instruct on ideal BMI & set weight loss goal w/patient, Assist pt to ID & incorporate diet changes for weight loss by S9, Refer to Structured Weight Loss program as appropriate, Encourage goal of using 250-300dcal per session for weight loss and Other additional plan/interventions 30 day Reassessments:: Progressing Reassessment Notes & Comments:: pt to attend nutrition class Healthy Eating Habits Will attend diet classes:: Yes Outcomes/Goals:: Consume diet rich in vegs,fruits,whole grain/high fiber,fish,lean meat, Limit sat/trans fats,cholesterol & added salts & sugars and Other additional outcome/goals: Intervention/Plan:: Assess current eating habits and Other Additional plan/interventions 30-day Reassessments:: Progressing Reassessment Notes & Comments:: pt to attend nutrition class Education Gave educational materials for:: Signs & symptoms of hypoglycemia, Signs & symptoms of hyperglycemia, Relate diabetes to coronary artery disease and Healthy eating Nutrition - 60-Day Assessment Weight Mgt (Other Care) Height: 5 ft 6 in Weight:: 161 lb BMI: 25.9 Core - 30-Day Assessment Visit Date of Eval: 09/21/23 Session #:: 11 Medication Compliance Preventative Medication(s):: Aspirin, Clopidogrel/P2Y12 inhibit, Statin/lipid and Beta aubrey H/O mental health issues: depression, anxiety, or addiction?: No Doesn?t believe in the benefits of treatment?: No Believes medications are unnecessary or harmful?: No Has a concern about medication side effects?: No Expresses concern over the cost of medications?: No Outcomes/Goals: Verbalizes medications,desired effect & common side effects @ DC, Pt self-reports following medication regimen, Keeps card in wallet w/medications listed by DC and Other additional outcome/goals: Interventions/plans: Instruct on medication effects & side effects, Review medication list w/patient every two weeks, Instruct importance of taking meds as ordered & assist problem solving and Other additional 30-day Reassessments:: Progressing Reassessment Notes & Comments:: pt encouraged to take her meds Tobacco Use Tobacco Use: Non-smoker Hypertension Resting Blood Pressure:: 140/90 [place] [employer] Hypertension Guidelines Peak Exercise Blood Pressure:: 150/90 Outcomes/Goals: Able to verbalize/achieve optimal blood pressure <130/80, Incorporates diet changes & exercise for blood pressure control by DC and Other additional outcomes/goals Interventions/plan: Instruct on optimal blood pressure, hypertension & medications, Instruct on effects of sodium, alcohol, stress, exercise &hypertension and Other additional plan/interventions 30 day Reassessments:: Progressing Reassessment Notes & Comments:: pt encouraged to take her meds Tobacco Cessation Referral Smoking Cessation Referral:: No Individual Education/Counseling:: No Education Schedule Given:: Yes Psychosocial - 30-Day Assess VIsit History of previous Mental disease:: No Target Goals Target Goals Outcomes/Goals: See list Psychosocial Outcomes/Goals:: ID's personal stressors & 2 strategies to manage stress by discharge and Other Additional outcome/goals: Intervention/Plan: See List Interventions/Plan:: Assess stressors,coping strategies & signs of derpression on admission, Instruct/assist pt to develop coping & personal stress Mgt strategies, Refer to Behavioral Health if appropriate, Refer to Physician if appropriate, Instruct patient to recognize signs & symptoms of depression, Instruct patient to recog and Other additional plan/intervention 30-day Reassessments: 30 day Reassessments:: Met Psychosocial - 60-Day Assess Target Goals Target Goals Outcomes/Goals: See list Psychosocial Outcomes/Goals:: ID's personal stressors & 2 strategies to manage stress by discharge and Other Additional outcome/goals: Psychosocial - 90-Day Assess Target Goals Target Goals Psychosocial - Final Assessmen Target Goals Target Goals Nutrition - 90-Day Assessment Weight Mgt (Other Care) Height: 5 ft 6 in Weight:: 161 lb BMI: 25.9 Nutrition - Final Assessment Weight Mgt (Other Care) Height: 5 ft 6 in Weight:: 161 lb BMI: 25.9
[2023-09-21 08:54] VITALS: BP 140/90; BMI 25.9
== END 2023-09-23 23:59 ==
LOC: CR 15:15
PROVIDERS: PCP Family Medicine; Referring Provider Specialist; Visit Provider Specialist
DX: Z95.5 Presence of coronary angioplasty implant and graft (principal); I21.29 ST elevation (STEMI) myocardial infarction involving other sites; I25.10 Atherosclerotic heart disease of native coronary artery without angina pectoris
CPT/HCPCS: 93798

== ENCOUNTER 2023-10-24 15:15 | Outpatient (RCR) | payer OTHER, SELFPAY ==
[2023-09-24 00:09] VITALS: BP 140/90
--- NOTE | 2023-10-22 08:34 | PCM.CR.ITP ---
Nutrition - Initial Assessment Weight Mgt (Other Care) Height: 5 ft 6 in Weight:: 162 lb BMI: 26.1 Psychosocial - Initial Assess Target Goals Target Goals Patient Health Questionnaire PHQ-9 Screening 60-Day Re-eval Assessment: 1. Little interest or pleasure in doing things: Not at all 2. Feeling down, depressed, or hopeless: Several days 3. Trouble falling or staying asleep, or sleeping too much: Several days 4. Feeling tired or having little energy: More than half the days 5. Poor appetite or overeating: Several days 6. Feeling bad about yourself -- or that you are a failure or have let yourself or your family down: Not at all 7. Trouble concentrating on things, such as reading the newspaper or watching television: Not at all 8. Moving or speaking so slowly that other people could have noticed. Or the opposite - being so fidgety or restless that you have been moving around a lot more than usual: Not at all 9. Thoughts that you would be better off , or of hurting yourself in some way: Not at all How difficult have these problems made it for you to do your work, take care of things at home, or get along with other people?: Not difficult at all Total Score: 5 Self-Efficacy 6-Item Scale 60-Day Re-eval Assessment: We would like to know how confident you are in doing certain activities. Please select your confidence level for: Fatigue Select Number: 7 Physical Discomfort or Pain Select Number: 6 Emotional Distress Select Number: 7 Other Symptoms or Health Problems Select Number: 7 Different Tasks and Activities Select Number: 9 Medication Select Number: 9 Total Score:: 7 Nutrition Survey Nutrition Survey Instructions Scoring Instructions Exercise - 60-day Assessment Visit Date of Eval: 10/22/23 Session #:: 21 Physician Prescribed Exercise Modalities: Treadmill, Airdyne and NuStep Frequency: 3x/week for 12 weeks [36 sessions] Intensity: 60-80% of age predicted maximum heart rate reserve Duration: 30 - 45 minutes Current METSs:: 3.5 Target Heart Rate:: 98-123 Current RPE:: 11-12 Maximum Excercise HR:: 111 Resting Blood Pressure: 108/58 Maximum Exercise Blood Pressure: 112/72 EKG Type: NSR to ST Outcomes & Goals Goals:: Verbalizes understanding of THR, RPE & goal METS by session 6, Documents in home exercise log/reports 30 min aerobic 5 day/wk by DC, Demonstrates accurate pulse taking by DC and Other additional outcome/goals: see below Intervention & Plan Exercise Program Goals: Instruct on personal THR & RPE, Instruct on MET level & personal MET goal, Show patient to take own pulse /validate performance until accurate, Instruct on home exercise and Other additional plan/int 30-day Reassessments 30 day Reassessments:: Progressing Reassessment Notes & Comments:: RPE explained Physical Activity Home Exercise Physical Activity - Home Exercise: Safe Exercise, Warm-up, Self-monitoring, Cool-Down, Home Exercise > 30 min Daily and Sitting Time <3 hours/daily Outcomes & Goals Outcomes/Goals: Demonstrates correct Warm-up/exercise Cool-Down (S3) if = 2.5 METs, Verbalizes symptoms of exercise intolerance by Session 3 (S3), Demonstrate safe equipment use (S3) & follows exercise prescrition (6) and Other: See below Intervention & Plan Plan/Intervention: Instruct warm-up & cool-down if exercising at > 2 METs, Instruct on symptoms of exercise intolerance & actions to take, Instruct & monitor on saf, Assess intial functional capacity & safety risk and Other See below 30-day Reassessments 30 day Reassessments:: Progressing Reassessment Notes & Comments:: cool down encouraged Nutrition - 30-Day Assessment Weight Mgt (Other Care) Height: 5 ft 6 in Weight:: 162 lb BMI: 26.1 Nutrition - 60-Day Assessment Program Goals Nutrition Program Goals Patient has diagnosis of Hyperlipidemia (ICD E78)?: No Visit Date of Eval: 10/22/23 Session #:: 21 Cholesterol/Lipids (Other Core Measures) Determine presence & major risk factors that modify LDL goal: Hypertension or hypertensive medication, Low HDL cholesterol <40 mg/dL*, Family history of premature CHD in Male < 55 years: female <65 yearsFa and Age men > 45 years; women >/= 55 years Outcomes/Goals: Pt IDs own risk factors & lifestyle modifications by Session 10, Verbalizes symptoms of angina & response by session 3., Pt independently manages and Other Additional Outcomes/Goals: Intervention/Plan: Advocate for lipid panel cholesterol medication if applicable, Instruct on personal lipid levels & lipid goals/NCEP guidelines, Instruct on cholesterol and Other additional plan/int Referral to dietitian:: No 30-day Reassessments:: Progressing Reassessment Notes & Comments:: pt to attend nutrition class Diabetes (Other Core Measures) Diabetes Type: Not Applicable Weight Mgt (Other Care) Height: 5 ft 6 in Weight:: 162 lb BMI: 26.1 Diagnosis Overweight/Obesity BMI> 30% ICD-10 E66: No Diagnosis High BMI/Morbid Obesity BMI> 35% ICD-10 Z68: No Outcomes/Goals: Pt sets, maintains & shows weight loss goal & trend during rehab and Other additional outcomes/goals Intervention/Plan: Instruct on ideal BMI & set weight loss goal w/patient, Assist pt to ID & incorporate diet changes for weight loss by S9, Refer to Structured Weight Loss program as appropriate, Encourage goal of using 250-300dcal per session for weight loss and Other additional plan/interventions 30 day Reassessments:: Progressing Reassessment Notes & Comments:: pt to attend nutrition class Healthy Eating Habits Will attend diet classes:: Yes Outcomes/Goals:: Consume diet rich in vegs,fruits,whole grain/high fiber,fish,lean meat, Limit sat/trans fats,cholesterol & added salts & sugars and Other additional outcome/goals: Intervention/Plan:: Assess current eating habits and Other Additional plan/interventions 30-day Reassessments:: Progressing Reassessment Notes & Comments:: pt to attend nutrition class Education Gave educational materials for:: Signs & symptoms of hypoglycemia, Signs & symptoms of hyperglycemia, Relate diabetes to coronary artery disease and Healthy eating Core - 60-Day Assessment Visit Date of Eval: 10/22/23 Session #:: 21 Medication Compliance Preventative Medication(s):: Aspirin, Clopidogrel/P2Y12 inhibit, Statin/lipid and Beta aubrey H/O mental health issues: depression, anxiety, or addiction?: No Doesn?t believe in the benefits of treatment?: No Believes medications are unnecessary or harmful?: No Has a concern about medication side effects?: No Expresses concern over the cost of medications?: No Outcomes/Goals: Verbalizes medications,desired effect & common side effects @ DC, Pt self-reports following medication regimen, Keeps card in wallet w/medications listed by DC and Other additional outcome/goals: Interventions/plans: Instruct on medication effects & side effects, Review medication list w/patient every two weeks, Instruct importance of taking meds as ordered & assist problem solving and Other additional 30-day Reassessments:: Progressing Reassessment Notes & Comments:: pt encouraged to take her meds Tobacco Use Tobacco Use: Non-smoker Hypertension Resting Blood Pressure:: 108/58 [place] [employer] Hypertension Guidelines Peak Exercise Blood Pressure:: 112/72 Outcomes/Goals: Able to verbalize/achieve optimal blood pressure <130/80, Incorporates diet changes & exercise for blood pressure control by DC and Other additional outcomes/goals Interventions/plan: Instruct on optimal blood pressure, hypertension & medications, Instruct on effects of sodium, alcohol, stress, exercise &hypertension and Other additional plan/interventions 30 day Reassessments:: Progressing Reassessment Notes & Comments:: pt encouraged to take her meds Tobacco Cessation Referral Smoking Cessation Referral:: No Individual Education/Counseling:: No Education Schedule Given:: Yes Psychosocial - 30-Day Assess Target Goals Target Goals Outcomes/Goals: See list Psychosocial Outcomes/Goals:: ID's personal stressors & 2 strategies to manage stress by discharge and Other Additional outcome/goals: Psychosocial - 60-Day Assess VIsit Date of Eval: 10/22/23 Session #:: 21 History of previous Mental disease:: No Target Goals Target Goals Outcomes/Goals: See list Psychosocial Outcomes/Goals:: ID's personal stressors & 2 strategies to manage stress by discharge and Other Additional outcome/goals: Intervention/Plan: See List Interventions/Plan:: Assess stressors,coping strategies & signs of derpression on admission, Instruct/assist pt to develop coping & personal stress Mgt strategies, Refer to Behavioral Health if appropriate, Refer to Physician if appropriate, Instruct patient to recognize signs & symptoms of depression, Instruct patient to recog and Other additional plan/intervention 30-day Reassessments: 30 day Reassessments:: Met Psychosocial - 90-Day Assess Target Goals Target Goals Psychosocial - Final Assessmen Target Goals Target Goals Nutrition - 90-Day Assessment Weight Mgt (Other Care) Height: 5 ft 6 in Weight:: 162 lb BMI: 26.1 Nutrition - Final Assessment Weight Mgt (Other Care) Height: 5 ft 6 in Weight:: 162 lb BMI: 26.1
[2023-10-22 08:41] VITALS: BP 108/58; BMI 26.1
[2023-10-22 08:48] VITALS: BP 108/58
== END 2023-10-24 23:59 ==
LOC: CR 15:15
PROVIDERS: PCP Family Medicine; Referring Provider Specialist; Visit Provider Specialist
DX: Z95.5 Presence of coronary angioplasty implant and graft (principal); I21.29 ST elevation (STEMI) myocardial infarction involving other sites; I25.10 Atherosclerotic heart disease of native coronary artery without angina pectoris
CPT/HCPCS: 93798

== ENCOUNTER 2023-11-21 15:15 | Outpatient (RCR) | payer OTHER, SELFPAY ==
[2023-10-22 08:41] VITALS: BMI 26.1
[2023-10-25 00:10] VITALS: BP 108/58; BP 140/90
--- NOTE | 2023-11-21 08:46 | PCM.CR.ITP ---
Nutrition - Initial Assessment Weight Mgt (Other Care) Height: 5 ft 6 in Weight:: 160 lb BMI: 25.8 Psychosocial - Initial Assess Target Goals Target Goals Patient Health Questionnaire PHQ-9 Screening 90-Day Re-eval Assessment: 1. Little interest or pleasure in doing things: Not at all 2. Feeling down, depressed, or hopeless: Several days 3. Trouble falling or staying asleep, or sleeping too much: Several days 4. Feeling tired or having little energy: More than half the days 5. Poor appetite or overeating: Several days 6. Feeling bad about yourself -- or that you are a failure or have let yourself or your family down: Not at all 7. Trouble concentrating on things, such as reading the newspaper or watching television: Not at all 8. Moving or speaking so slowly that other people could have noticed. Or the opposite - being so fidgety or restless that you have been moving around a lot more than usual: Not at all 9. Thoughts that you would be better off , or of hurting yourself in some way: Not at all How difficult have these problems made it for you to do your work, take care of things at home, or get along with other people?: Not difficult at all Total Score: 5 Self-Efficacy 6-Item Scale 90-Day Re-eval Assessment: We would like to know how confident you are in doing certain activities. Please select your confidence level for: Fatigue Select Number: 7 Physical Discomfort or Pain Select Number: 6 Emotional Distress Select Number: 7 Other Symptoms or Health Problems Select Number: 7 Different Tasks and Activities Select Number: 9 Medication Select Number: 9 Total Score:: 7 Nutrition Survey Nutrition Survey Instructions Scoring Instructions Exercise - 90-day Assessment Visit Date of Eval: 11/21/23 Session #:: 33 Physician Prescribed Exercise Modalities: Treadmill, Airdyne and NuStep Frequency: 3x/week for 12 weeks [36 sessions] Intensity: 60-80% of age predicted maximum heart rate reserve Duration: 30 - 45 minutes Current METSs:: 4.7 Target Heart Rate:: 98-131 Current RPE:: 11-12 Maximum Excercise HR:: 127 Resting Blood Pressure: 102/74 Maximum Exercise Blood Pressure: 140/72 EKG Type: NSR to ST Outcomes & Goals Goals:: Verbalizes understanding of THR, RPE & goal METS by session 6, Documents in home exercise log/reports 30 min aerobic 5 day/wk by DC, Demonstrates accurate pulse taking by DC and Other additional outcome/goals: see below Intervention & Plan Exercise Program Goals: Instruct on personal THR & RPE, Instruct on MET level & personal MET goal, Show patient to take own pulse /validate performance until accurate, Instruct on home exercise and Other additional plan/int 30-day Reassessments 30 day Reassessments:: Met Physical Activity Home Exercise Physical Activity - Home Exercise: Safe Exercise, Warm-up, Self-monitoring, Cool-Down, Home Exercise > 30 min Daily and Sitting Time <3 hours/daily Outcomes & Goals Outcomes/Goals: Demonstrates correct Warm-up/exercise Cool-Down (S3) if = 2.5 METs, Verbalizes symptoms of exercise intolerance by Session 3 (S3), Demonstrate safe equipment use (S3) & follows exercise prescrition (6) and Other: See below Intervention & Plan Plan/Intervention: Instruct warm-up & cool-down if exercising at > 2 METs, Instruct on symptoms of exercise intolerance & actions to take, Instruct & monitor on saf, Assess intial functional capacity & safety risk and Other See below 30-day Reassessments 30 day Reassessments:: Met Nutrition - 30-Day Assessment Weight Mgt (Other Care) Height: 5 ft 6 in Weight:: 160 lb BMI: 25.8 Nutrition - 60-Day Assessment Weight Mgt (Other Care) Height: 5 ft 6 in Weight:: 160 lb BMI: 25.8 Core - 90 Day Assessment Visit Date of Eval: 11/21/23 Session #:: 33 Medication Compliance Preventative Medication(s):: Aspirin, Clopidogrel/P2Y12 inhibit, Statin/lipid and Beta aubrey H/O mental health issues: depression, anxiety, or addiction?: No Doesn?t believe in the benefits of treatment?: No Believes medications are unnecessary or harmful?: No Has a concern about medication side effects?: No Expresses concern over the cost of medications?: No Outcomes/Goals: Verbalizes medications,desired effect & common side effects @ DC, Pt self-reports following medication regimen, Keeps card in wallet w/medications listed by DC and Other additional outcome/goals: Interventions/plans: Instruct on medication effects & side effects, Review medication list w/patient every two weeks, Instruct importance of taking meds as ordered & assist problem solving and Other additional 30-day Reassessments:: Met Tobacco Use Tobacco Use: Non-smoker Hypertension Resting Blood Pressure:: 102/74 [place] [employer] Hypertension Guidelines Peak Exercise Blood Pressure:: 140/72 Outcomes/Goals: Able to verbalize/achieve optimal blood pressure <130/80, Incorporates diet changes & exercise for blood pressure control by DC and Other additional outcomes/goals Interventions/plan: Instruct on optimal blood pressure, hypertension & medications, Instruct on effects of sodium, alcohol, stress, exercise &hypertension and Other additional plan/interventions 30 day Reassessments:: Met Tobacco Cessation Referral Smoking Cessation Referral:: No Individual Education/Counseling:: No Education Schedule Given:: Yes Psychosocial - 30-Day Assess Target Goals Target Goals Psychosocial - 60-Day Assess Target Goals Target Goals Psychosocial - 90-Day Assess VIsit Date of Eval: 11/21/23 Session #:: 33 History of previous Mental disease:: No Target Goals Target Goals Outcomes/Goals: See list Psychosocial Outcomes/Goals:: ID's personal stressors & 2 strategies to manage stress by discharge and Other Additional outcome/goals: Intervention/Plan: See List Interventions/Plan:: Assess stressors,coping strategies & signs of derpression on admission, Instruct/assist pt to develop coping & personal stress Mgt strategies, Refer to Behavioral Health if appropriate, Refer to Physician if appropriate, Instruct patient to recognize signs & symptoms of depression, Instruct patient to recog and Other additional plan/intervention 30-day Reassessments: 30 day Reassessments:: Met Psychosocial - Final Assessmen Target Goals Target Goals Nutrition - 90-Day Assessment Program Goals Nutrition Program Goals Patient has diagnosis of Hyperlipidemia (ICD E78)?: No Visit Date of Eval: 11/21/23 Session #:: 33 Cholesterol/Lipids (Other Core Measures) Determine presence & major risk factors that modify LDL goal: Hypertension or hypertensive medication, Low HDL cholesterol <40 mg/dL*, Family history of premature CHD in Male < 55 years: female <65 yearsFa and Age men > 45 years; women >/= 55 years Outcomes/Goals: Pt IDs own risk factors & lifestyle modifications by Session 10, Verbalizes symptoms of angina & response by session 3., Pt independently manages and Other Additional Outcomes/Goals: Intervention/Plan: Advocate for lipid panel cholesterol medication if applicable, Instruct on personal lipid levels & lipid goals/NCEP guidelines, Instruct on cholesterol and Other additional plan/int Referral to dietitian:: No 30-day Reassessments:: Met Diabetes (Other Core Measures) Diabetes Type: Not Applicable Weight Mgt (Other Care) Height: 5 ft 6 in Weight:: 160 lb BMI: 25.8 Diagnosis Overweight/Obesity BMI> 30% ICD-10 E66: No Diagnosis High BMI/Morbid Obesity BMI> 35% ICD-10 Z68: No Outcomes/Goals: Pt sets, maintains & shows weight loss goal & trend during rehab and Other additional outcomes/goals Intervention/Plan: Instruct on ideal BMI & set weight loss goal w/patient, Assist pt to ID & incorporate diet changes for weight loss by S9, Refer to Structured Weight Loss program as appropriate, Encourage goal of using 250-300dcal per session for weight loss and Other additional plan/interventions 30 day Reassessments:: Met Healthy Eating Habits Will attend diet classes:: Yes Outcomes/Goals:: Consume diet rich in vegs,fruits,whole grain/high fiber,fish,lean meat, Limit sat/trans fats,cholesterol & added salts & sugars and Other additional outcome/goals: Intervention/Plan:: Assess current eating habits and Other Additional plan/interventions 30-day Reassessments:: Met Education Gave educational materials for:: Signs & symptoms of hypoglycemia, Signs & symptoms of hyperglycemia, Relate diabetes to coronary artery disease and Healthy eating Nutrition - Final Assessment Weight Mgt (Other Care) Height: 5 ft 6 in Weight:: 160 lb BMI: 25.8
[2023-11-21 08:55] VITALS: BP 102/74; BMI 25.8
== END 2023-11-22 23:59 ==
LOC: CR 15:15
PROVIDERS: PCP Family Medicine; Referring Provider Specialist; Visit Provider Specialist
DX: Z95.5 Presence of coronary angioplasty implant and graft (principal); I21.29 ST elevation (STEMI) myocardial infarction involving other sites; I25.10 Atherosclerotic heart disease of native coronary artery without angina pectoris
CPT/HCPCS: 93798

== ENCOUNTER 2023-11-26 15:15 | Outpatient (RCR) | payer OTHER, SELFPAY ==
[2023-11-23 00:08] VITALS: BP 102/74; BP 108/58; BP 140/90
== END 2023-12-23 23:59 ==
LOC: CR 15:15
PROVIDERS: PCP Family Medicine; Referring Provider Specialist; Visit Provider Specialist
DX: Z95.5 Presence of coronary angioplasty implant and graft (principal); I21.29 ST elevation (STEMI) myocardial infarction involving other sites; I25.10 Atherosclerotic heart disease of native coronary artery without angina pectoris
CPT/HCPCS: 93798

== ENCOUNTER → 2024-08-20 | Outpatient (CLI) | payer OTHER, SELFPAY | END | disposition home or self-care (01) | PROVIDERS: PCP Family Medicine; Referring Provider Nurse Practitioner Family; Visit Provider Nurse Practitioner Family | DX: N39.0 Urinary tract infection, site not specified (principal) | CPT/HCPCS: 87077; 87086; 87088; 87186 ==

== ENCOUNTER 2024-10-23 01:10 | Emergency (ER) | payer OTHER, SELFPAY ==
[2024-10-23 01:12] VITALS: BP 153/78; PULSE 109; RESP 18; TEMP 37; O2SAT 98; BMI 25.8
--- NOTE | 2024-10-23 01:39 | EKG12_ITS ---
Test Reason : CP Blood Pressure : */* mmHG Vent. Rate : 106 BPM Atrial Rate : 106 BPM P-R Int : 116 ms QRS Dur : 80 ms QT Int : 346 ms P-R-T Axes : -14 74 27 degrees QTcB Int : 459 ms Sinus tachycardia Nonspecific ST abnormality Abnormal ECG Confirmed by ELY GOYAL, IFTIKHAR ([id number]), newspaper or periodical editor RUDY SILVA ([id number]) on 10/23/2024 1:28:25 PM Referred By: TL Confirmed By: IFTIKHAR GRAVES MD
--- NOTE | 2024-10-23 01:39 | RAD_ITS ---
PROCEDURE: CHEST PA AND LATERAL REASON FOR EXAM: Chest discomfort. Cough. TECHNIQUE: Frontal and lateral views of the chest. COMPARISON: 06/30/2023 FINDINGS: Right hemidiaphragm is mildly elevated. Lungs are well aerated. No focal airspace consolidation, pn eumothorax or pleural effusion is seen. Remaining lung markings otherwise appears clear. Heart size and great vessels are stable. The visualized osseous thorax appears intact. RAD/Chest PA and Lateral IMPRESSION: No acute cardiopulmonary process identified. Reading Location: [id number]
--- NOTE | 2024-10-23 01:45 | ED.VIS.DYS ---
HPI History of Present Illness Chief Complaint: Shortness of Breath Informant: patient Narrative Narrative: Presents for evaluation chest pain after an aspiration event to half hours ago. For the normal fluids taking her methimazole started choking. She has been coughing since. Developed midsternal pain. No tobacco history. Had an AL with a stent 2022. She is on baby aspirin. No fevers. Was doing well up till the event. 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) Asthma Chronic anemia Vitamin B12 deficiency Iron deficiency anemia Overweight Graves disease Home Medications ?Medication ?Instructions ?Recorded ?Last Taken ?Type albuterol sulfate 90 mcg/actuation 1 - 2 puff inhalation Q4H PRN PRN 10/04/17 Unknown History aerosol inhaler (Ventolin HFA) Sob &/Or Wheezing melatonin ER 10 mg-pyridoxine HCl 1 ea PO QHS PRN Sleep 10/04/17 Unknown History (B6) 10 mg tab, immed-extend release multivitamin (Multiple Vitamins 1 ea PO DAILY 10/04/17 Unknown History tablet) methimazole 5 mg tablet 5 mg PO BID 06/30/23 Unknown History aspirin 81 mg chewable tablet 81 mg PO BREAKFAST #0 tabs 07/01/23 Unknown Rx cyanocobalamin (vitamin B-12) 2,000 mcg (2 x 1,000 mcg) PO DAILY 07/01/23 Unknown Rx 1,000 mcg capsule #1 cap ferrous gluconate 324 mg (37.5 mg 324 mg PO BIDCM #0 tabs 07/01/23 Unknown Rx iron) tablet carvedilol 6.25 mg tablet 6.25 mg PO BID this is a dose 09/10/23 Unknown Rx increase #60 tabs clopidogrel 75 mg tablet 75 mg PO DAILY #90 TABLETS 07/07/24 Unknown Rx atorvastatin 80 mg tablet 80 mg PO QHS #360 TABLETS 07/21/24 Unknown Rx Allergy/AdvReac Type Severity Reaction Status Date / Time acetaminophen (From Vicodin) AdvReac Nausea Verified 10/23/24 01:11 codeine AdvReac Nausea Verified 10/23/24 01:11 hydrocodone (From Vicodin) AdvReac Nausea Verified 10/23/24 01:11 morphine AdvReac Nausea Verified 10/23/24 01:11 Family History Grandfather CAD (coronary artery disease) Maternal GF. Hypertension Heart disease Myocardial infarction Grandfather CAD (coronary artery disease) Paternal GF Hypertension Heart disease Myocardial infarction Uncle CAD (coronary artery disease) Maternal uncle. Hypertension Heart disease Myocardial infarction Uncle CAD (coronary artery disease) Paternal Uncle. Hypertension Heart disease Myocardial infarction Brother Myocardial infarction Hypertension Heart disease CAD (coronary artery disease) Father Diabetes Mother Hypertension Surgical History Stented coronary artery (06/30/23) History of dental surgery S/P tonsillectomy and adenoidectomy H/O unilateral oophorectomy History of hysterectomy S/P appendectomy Social History household members: spouse Smoking Status: Never smoker how long ago did patient quit smoking: Smoked couple cig/week x ~ 6 months in 1983, none since. alcohol intake: current alcohol intake frequency: 0-2 drinks per day details: Drinks 2, sometimes max 3 glasses wine 3/week. substance use type: does not use ROS ROS ED Constitutional Constitutional ED: Denies chills, fever(s) or sweats ENT ENT ED: Denies sore throat Cardiovascular Cardiovascular: Reports chest pain; Denies leg edema, palpitations or racing heartbeat Respiratory/Chest Respiratory/Chest: Reports cough; Denies dyspnea or dyspnea on exertion Gastrointestinal Gastrointestinal: Denies abdominal pain, diarrhea, nausea or vomiting Genitourinary Genitourinary ED: Denies dysuria, hematuria or urinary frequency Musculoskeletal Musculoskeletal: Denies back pain, extremity pain or neck pain Integumentary Denies rash or wounds Neurologic Neurologic: Denies headache(s), paresthesias or weakness EXAM Physical Exam Const Vital Signs: 10/23/24 01:11 10/23/24 01:12 10/23/24 01:39 Temperature 98.6 F Temperature Source Oral Pulse Rate 109 H Respiratory Rate 18 Respiratory Effort Normal Non-Labored Respiratory Depth Normal Respiratory Pattern Normal Blood Pressure 153/78 H Blood Pressure Mean 103 Pulse Ox 98 Oxygen Delivery Method Room Air Room Air Room Air 10/23/24 02:11 10/23/24 03:00 10/23/24 04:00 Temperature Temperature Source Pulse Rate 101 H 90 89 Respiratory Rate 16 18 16 Respiratory Effort Respiratory Depth Respiratory Pattern Blood Pressure 132/60 H 122/85 H 128/75 H Blood Pressure Mean 84 97 92 Pulse Ox 96 95 92 Oxygen Delivery Method Room Air Room Air Room Air 10/23/24 05:01 Temperature 98.1 F Temperature Source Pulse Rate 92 Respiratory Rate 18 Respiratory Effort Respiratory Depth Respiratory Pattern Blood Pressure 124/76 H Blood Pressure Mean 92 Pulse Ox 95 Oxygen Delivery Method Positive well nourished and well developed Constitutional Narrative: Occasional coughing during exam. General Appearance ED: well developed and NAD HEENT Reports moist mucous membranes normocephalic and atraumatic Eyes General Eye ED: Yes normal appearance of both eyes Neck full ROM Chest Wall Chest: Negative for tenderness Resp normal respiratory effort and normal air movement Resp Narrative: No respiratory distress. Effort and Inspection: symmetric chest movement; Negative for respiratory distress Cardio regular rhythm and no murmurs Rate: tachycardic Peripheral Pulses: pulses 2+ throughout GI normal to inspection, nondistended, normoactive bowel sounds and non-tender Palpation: Negative for guarding or rebound tenderness present Extremity normal to inspection General Extremety ED: Negative for edema or tenderness General Extremity: Negative for edema Neuro oriented x3 and no sensory deficits noted Sensorium / Orientation: awake and alert Skin no rashes or lesions noted and no wounds MDM MDM MDM Narrative Medical decision making narrative: Interventions / MDM: Differential diagnosis: Atypical chest pain, aspiration event Diagnosis considered but do not suspect: ACS however cardiac workup negative. My EKG interpretation: Sinus rate of 106, no ST changes, I see T wave version leads III, nonspecific. Imaging independently reviewed and interpreted by myself: 2 view chest x-ray: No acute process also read by radiology. External documents reviewed: N/A Test considered but not ordered:N/A ED course: Patient chest pain after aspiration event. Occasional coughing since then. No respiratory distress. EKG sinus tachycardia. Obtain cardiac labs for rule out. Two-view chest x-ray. Will monitor respiratory symptoms with aspiration event. 0341: Chest x-ray negative initial troponin negative. Hemoglobin 9.4. Creatinine 1.12. Symptoms suddenly down at this time. Awaiting delta troponin. No symptoms going down for upgrades at 4 AM. Plan if repeat troponin negative, discharged with outpatient follow-up. No respiratory distress at this time. Return precaution discussed. Delta troponin returned negative. Re-evaluation: stable Disposition discussed with patient/family/significant other: Patient and spouse Case discussed with consulting clinician: N/A This note was generated with [employer] dictation software. It may contain incorrect words, spelling, and punctuation that were not noted in checking the note before signing. Lab Data Attestation: I reviewed the patient's lab results. Labs: Laboratory Results - last 24 hr 10/23/24 10/23/24 01:33 03:42 WBC 12.7 H RBC 4.35 Hgb 11.4 L Hct 36.5 L MCV 83.9 MCH 26.2 L MCHC 31.2 L RDW Std Deviation 48.9 H RDW Coeff of Rylee 15.8 H Plt Count 451 H MPV 10.3 Immature Gran % (Auto) 4.400 H Neut % (Auto) 75.2 H Lymph % (Auto) 14.2 L [place] % (Auto) 5.0 Eos % (Auto) 0.8 Baso % (Auto) 0.4 Absolute Neuts (auto) 9.6 H Absolute Lymphs (auto) 1.81 Nucleated RBC % 0 Differential Comment SCANNED Sodium 141 Potassium 3.7 Chloride 106 Carbon Dioxide 27.0 Anion Gap 8 BUN 20 H Creatinine 1.12 H Estim Creat Clear Calc 56.53 Est GFR (MDRD) Af Amer 64 Est GFR (MDRD) Non-Af 53 L BUN/Creatinine Ratio 17.9 Glucose 198 H Calcium 10.6 H Troponin I High Sens 4 4 Radiography Diagnostic Testing: Clinical Impression(s) from Imaging Studies Chest X-Ray 10/23/24 01:39 IMPRESSION: No acute cardiopulmonary process identified. Reading Location: [facility] Discharge Plan Triage Chief Complaint: Shortness of Breath ED Provider: Jhony Zavala Dx/Rx/DC Orders Clinical Impression: Chest pain, Aspiration into airway Instructions: Dysphagia Aspiration, ED Chest Pain, Uncertain Cause Prescriptions: No Action multivitamin [Multiple Vitamins] 1 EACH tablet 1 ea PO DAILY albuterol sulfate [Ventolin HFA] 1 INHALER inhaler 1 - 2 puff inhalation Q4H PRN PRN (Reason: Sob &/Or Wheezing) melatonin-pyridoxine HCl (B6) 1 EACH tablet, IR and ER, biphasic 1 ea PO QHS PRN (Reason: Sleep) methimazole 5 mg tablet 5 mg PO BID Patient Comments: take 1 tablet by mouth twice a day with food aspirin 81 mg Tablet,Chewable 81 mg PO BREAKFAST Qty: 0 0RF ferrous gluconate 324 mg (37.5 mg iron) Tablet 324 mg PO BIDCM Qty: 0 0RF cyanocobalamin (vitamin B-12) 1,000 MCG capsule 2,000 mcg PO DAILY Qty: 1 0RF carvedilol 6.25 mg tablet 6.25 mg PO BID Qty: 60 11RF Rx Instructions: must administer with a meal/food clopidogrel 75 mg tablet 75 mg PO DAILY Qty: 90 3RF atorvastatin 80 mg tablet 80 mg PO QHS Qty: 360 0RF Primary Care Provider: Quinton Claudio Referrals: Quinton Claudio DO [Primary Care Provider] - 1 Week Activity Restrictions/Additional Instructions: Chest x-ray negative. Cardiac workup negative. Monitor symptoms. You develop any worsening respiratory distress, return to ED for reevaluation. Print Language: Macedonian Disposition Disposition: Home, Self Care Discharge Date/Time: 10/23/24 05:01
[2024-10-23 01:49] LABS: Absolute Lymphocyte Count 1.81 X10^3/uL (0.83-4.51); Absolute Neutrophil Count 9.6 X10^3/uL (2.0-7.7); Basophil# 0.05 X10^3/uL; Basophil% 0.4 % (0-1); Eosinophils% 0.8 % (0-5); Hematocrit 36.5 % (37-47); Hemoglobin 11.4 g/dL (12.0-15.0); Lymphocyte # 1.81 X10^3/ul (0.83-4.51); Lymphocyte % 14.2 % (19-41); Mean Corp Hgb Conc 31.2 g/dL (32-36); Mean Corpuscular Hgb 26.2 pg (27.0-32.0); Mean Corpuscular Volume 83.9 fL (81-99); Mean Platelet Vol. 10.3 fl (6.2-12.0); Monocyte# 0.64 X10^3/uL; NRBC Flagged by Analyzer 0 % (0-5); Neutrophil # 9.58 X10^3/uL (2.7-7.7); Neutrophil % 75.2 % (47-70); POSITIVE MORPHOLOGY YES; Platelet Count 451 K/mm3 (150-450); RBC Distribution Width CV 15.8 % (11.6-14.6); RBC Distribution Width SD 48.9 fl (35.1-43.9); Red Blood Count 4.35 M/mm3 (4.2-5.4); White Blood Count 12.7 K/mm3 (4.4-11.0)
[2024-10-23 01:55] LABS: Differential Indicated SCAN CRITERIA MET
[2024-10-23 02:08] LABS: Anion Gap 8 (5-15); BUN 20 mg/dL (7-18); BUN/Creat Ratio 17.9 RATIO (10-20); Calcium,Total 10.6 mg/dL (8.5-10.1); Chloride 106 mmol/L (98-107); Creatinine, Serum 1.12 mg/dL (0.55-1.02); EST Glomerular Filtration Rate 53 mL/min (>60); Est Glom Filt Rate - Afr Amer 64 mL/min (>60); Estimated Creatinine Clearance 56.53 ml/min; Glucose 198 mg/dL (74-106); Potassium 3.7 mmol/L (3.5-5.1); Sodium Level 141 mmol/L (136-145); Troponin-I HS (w/2H Reflex) 4 pg/mL (3.0-54.0)
[2024-10-23 02:11] VITALS: BP 132/60; PULSE 101; RESP 16; O2SAT 96
[2024-10-23 02:55] LABS: Differential Comment SCANNED
[2024-10-23 03:00] VITALS: BP 122/85; PULSE 90; RESP 18; O2SAT 95
[2024-10-23 03:41] LABS: Reflex Troponin-HS? (from REC) Y
[2024-10-23 04:00] VITALS: BP 128/75; PULSE 89; RESP 16; O2SAT 92
[2024-10-23 05:01] VITALS: BP 124/76; PULSE 92; RESP 18; TEMP 36.7; O2SAT 95
--- NOTE | 2024-10-23 05:01 | ED.RN ---
see downtime paperwork
[2024-10-23 07:03] LABS: Troponin-I HS 4 pg/mL (3.0-54.0)
== END 2024-10-23 05:01 | disposition home or self-care (01) ==
PROVIDERS: Emergency Provider Emergency Medicine; PCP Family Medicine; Visit Provider Emergency Medicine
DX: R07.9 Chest pain, unspecified (principal); R06.02 Shortness of breath; Z79.82 Long term (current) use of aspirin; I25.10 Atherosclerotic heart disease of native coronary artery without angina pectoris; R05.9 Cough, unspecified; Z90.710 Acquired absence of both cervix and uterus; Z95.5 Presence of coronary angioplasty implant and graft; J45.909 Unspecified asthma, uncomplicated; I25.2 Old myocardial infarction
CPT/HCPCS: 99283; 71046; 80048; 84484; 85025; 93005; 99284; A4216